=== PATIENT | female | born 1980 | race Two or more races ===

== ENCOUNTER 2023-09-18 09:31 | Emergency (ER) | payer OTHER ==
[~2023-09-18] VITALS: Ht 170.2 cm; Wt 63.6 kg
[2023-09-18 09:51] VITALS: BP 123/91; PULSE 90; RESP 22; O2SAT 98
== END 2023-09-18 10:13 | disposition left against medical advice (07) ==
LOC: EDBD 09:31 → ER 09:31
DX: F15.10 Other stimulant abuse, uncomplicated (principal); G89.29 Other chronic pain

== ENCOUNTER 2023-10-09 08:41 | Emergency (ER) | payer MEDICAID ==
[~2023-10-09] VITALS: Ht 170.2 cm; Wt 55.0 kg
[2023-10-09 08:50] VITALS: BP 101/71; TEMP 99.4
[2023-10-09 09:17] VITALS: PULSE 113; RESP 18; O2SAT 95
[2023-10-09] MEDS: KETOROLAC TROMETH 60MG/2ML VIAL IM ONE (09:29)
[2023-10-09] MEDS: diphenhdrAMINE HCL 50 MG/1 ML VL IM ONE (09:30)
== END 2023-10-09 09:28 | disposition home or self-care (01) ==
LOC: ER 08:41 → EDBD 08:41 → ER 09:28
DX: G89.29 Other chronic pain (principal); M54.50 Low back pain, unspecified; Z59.00 Homelessness unspecified; Z88.6 Allergy status to analgesic agent
CPT/HCPCS: 96372; 99284; J1200; J1885

== ENCOUNTER 2023-10-09 09:52 | Inpatient (IN) | payer MEDICAID ==
[~2023-10-09] VITALS: Ht 170.2 cm; Wt 82.1 kg
[2023-10-09 10:42] VITALS: PULSE 68; RESP 14; O2SAT 98
[2023-10-09 11:06] LABS: Hematocrit 38.2 % (36.0-46.0); Hemoglobin 13.1 g/dL (12.2-16.2); Mean Corpuscular Hemoglobin 28.8 pg (28.0-32.0); Mean Corpuscular Hgb Conc. 34.4 g/dL (32.0-36.0); Mean Corpuscular Volume 83.9 fL (80.0-100.0); Platelet Count (auto) 248 10^3/uL (140-450); Red Blood Cells 4.55 10^6/uL (4.0-5.20); Red Cell Distribution Width 14.1 % (11.8-14.3); White Blood Cell 5.8 10^3/uL (4.4-10.8)
[2023-10-09 11:10] LABS: Band Neutrophils % (manual) 0; Basophils % (manual) 0 (0.0-2.0); Eosinophils % (manual) 0 (0-7); Metamyelocytes % 0; Myelocytes % 0; Promyelocytes % 0
[2023-10-09 11:23] LABS: Alanine Aminotransferase 17 U/L (7-40); Albumin 3.7 g/dL (3.2-4.8); Alkaline Phosphatase 51 U/L (46-116); Anion Gap 2 (5-15); Aspartate Aminotransferase 25 U/L (13-40); BUN/Creatinine Ratio 9.1 (10.0-20.0); Bilirubin, Total 0.3 mg/dL (0.2-1.0); Blood Urea Nitrogen 7 mg/dL (9-23); Calcium 8.8 mg/dL (8.7-10.4); Carbon Dioxide 33 mmol/L (20-30); Chloride 100 mmol/L (98-107); Glucose 139 mg/dL (74-106); Potassium 3.1 mmol/L (3.5-5.1); Sodium 135 mmol/L (136-145); Total Protein 6.6 g/dL (5.7-8.2)
[2023-10-09 12:06] LABS: Blast Cells 3; Lymphocytes % (manual) 41 (10.0-50.0); Monocytes % (manual) 8 (0-12); Platelet Estimate Adequate; Reactive Lymphocytes 2
[2023-10-09 13:11] LABS: Blood Alcohol < 3.0 mg/dL (<10)
[2023-10-09 13:12] LABS: Creatine Kinase IFCC 138 U/L (34-145)
[2023-10-09 13:54] LABS: Salicylate 4.9 mg/dL (2.8-20.0)
[2023-10-09 14:02] LABS: Acetaminophen < 2.0 UG/ML (10.0-20.0)
[2023-10-09] MEDS: SODIUM CHLORIDE 0.9% 1,000 ML IV ONE ×2 (14:42→16:31)
[2023-10-09 15:48] LABS: Urine Bacteria FEW /hpf (None Seen); Urine Blood Negative /uL (Negative); Urine Clarity Turbid (Clear); Urine Color Yellow (Yellow); Urine Mucus MODERATE (None Seen); Urine Protein, UAD 2+ (Negative); Urine Specific Gravity 1.031 (1.001-1.035); Urine Urobilinogen 6 mg/dL (Negative); Urine WBC 297 /hpf (0 - 5)
[2023-10-09 15:56] LABS: Amphetamine Screen, Urine Pos (NEGATIVE); Barbiturate Scree,Urine Neg (NEGATIVE); Benzodiazephine Screen, Urine Neg (NEGATIVE); Cannabinoid Screen, Urine Pos (NEGATIVE); Cocaine Screen, Urine Neg (NEGATIVE); Opiate Scree,Urine Neg (NEGATIVE); Phencyclidine Screen, Urine Neg (NEGATIVE)
[2023-10-09] MEDS: ONDANSETRON HCL 4 MG/2 ML VIAL IV ONE (16:16)
[2023-10-09] MEDS: POTASSIUM CHL 20 Meq TABLET PO ONE (16:17)
[2023-10-09] MEDS: cefTRIAXone 1GM/50ML D5W 50 ML IV ONE (16:22)
[2023-10-09] MEDS: HYDROcodone-ACET 5/325MG TAB PO ONE (16:23)
[2023-10-09] MEDS: LORazepam 2MG/ML-1ML VIAL ONE ×2 (16:45→23:48)
[2023-10-09] MEDS: LORazepam 2MG/ML-1ML VIAL IV ONE ×2 (17:00→23:46)
[2023-10-10] VITALS (75 sets, daily range): BP systolic 92–156; BP diastolic 50–93; PULSE 59–145; RESP 18–20; TEMP 98.1–100.2; O2SAT 35–100
[2023-10-10] MEDS: SODIUM CHLORIDE 0.9% 1,000 ML IV ONE ×2 (00:09→02:10)
[2023-10-10] MEDS: LORazepam 2MG/ML-1ML VIAL IV ONE (00:09)
[2023-10-10] MEDS: ROCURONIUM 10MG/ML 10ML VIAL IV ONE ×2 (00:28→00:43)
[2023-10-10] MEDS: MIDAZOLAM HCL 5 MG/ML-1ML VIAL ONE (00:28)
[2023-10-10] MEDS: NOREPINEPHRINE 8 MG/250ML KIT 250 ML IV SCH (00:38)
[2023-10-10] MEDS: NOREPINEPHRINE 8 MG/250ML KIT 250 ML IV ONE (00:39)
[2023-10-10] MEDS: PROPOFOL 100 ML IV ONE (00:39)
[2023-10-10] MEDS: MIDAZOLAM HCL 5 MG/ML-1ML VIAL IV ONE (00:43)
[2023-10-10] MEDS: PROPOFOL 100 ML IV SCH (00:56)
[2023-10-10] MEDS: IOHEXOL 300 MG/ML 100ML BOTTLE IJ ONE (01:55)
[2023-10-10] MEDS ORDERED: MORPHINE SULFATE INJ 2 MG/ml SYRG IV PRN (02:00)
[2023-10-10] MEDS ORDERED: ONDANSETRON HCL 4 MG/2 ML VIAL IV PRN (02:00)
[2023-10-10] MEDS ORDERED: NITROGLYCERIN 0.4 MG SL TAB SL PRN (02:00)
[2023-10-10] MEDS ORDERED: ACETAMINOPHEN 325 MG TAB PO PRN (02:00)
[2023-10-10] MEDS ORDERED: ALBUTEROL SULF 2.5 MG/0.5ML(0.5%) NEB SOLN NEB PRN (02:00)
[2023-10-10 02:05] LABS: Base Excess -2.4 mmol/L (-2.0-3.0)
[2023-10-10 02:42] LABS: Alanine Aminotransferase 18 U/L (7-40); Albumin 3.3 g/dL (3.2-4.8); Alkaline Phosphatase 50 U/L (46-116); Anion Gap 7 (5-15); Aspartate Aminotransferase 44 U/L (13-40); BUN/Creatinine Ratio 9.8 (10.0-20.0); Bilirubin, Total 0.2 mg/dL (0.2-1.0); Blood Urea Nitrogen 8 mg/dL (9-23); Calcium 7.7 mg/dL (8.7-10.4); Carbon Dioxide 24 mmol/L (20-30); Chloride 109 mmol/L (98-107); Glucose 131 mg/dL (74-106); Potassium 4.3 mmol/L (3.5-5.1); Sodium 140 mmol/L (136-145); Total Protein 6.1 g/dL (5.7-8.2)
[2023-10-10 02:59] LABS: Hematocrit 37.1 % (36.0-46.0); Hemoglobin 12.3 g/dL (12.2-16.2); Mean Corpuscular Hemoglobin 28.3 pg (28.0-32.0); Mean Corpuscular Hgb Conc. 33.3 g/dL (32.0-36.0); Platelet Count (auto) 213 10^3/uL (140-450); Red Blood Cells 4.36 10^6/uL (4.0-5.20); Red Cell Distribution Width 14.5 % (11.8-14.3); White Blood Cell 9.9 10^3/uL (4.4-10.8)
[2023-10-10 03:10] LABS: Basophils % (manual) 0 (0.0-2.0); Blast Cells 0; Eosinophils % (manual) 0 (0-7); Metamyelocytes % 0; Myelocytes % 0; Promyelocytes % 0; Reactive Lymphocytes 0
[2023-10-10] MEDS: fentaNYL Drip 2500mCg/250mlNS 250 ML IV SCH (03:13)
[2023-10-10] MEDS: MIDAZOLAM DRIP 50 mg/50mL 50 ML IV SCH (03:14)
[2023-10-10] MEDS: SODIUM CHLORIDE 0.9% 1,000 ML IV SCH ×2 (03:33→07:15)
[2023-10-10 03:38] LABS: Band Neutrophils % (manual) 5; Lymphocytes % (manual) 51 (10.0-50.0); Monocytes % (manual) 6 (0-12); Platelet Estimate Adequate
[2023-10-10] MEDS: CLINDAMYCIN 600MG IV 50 ML IV SCH (06:12)
[2023-10-10 07:47] LABS: Base Excess -4.2 mmol/L (-2.0-3.0)
[2023-10-10] MEDS: cefTRIAXone 1GM/50ML D5W 50 ML IV SCH (09:29)
[2023-10-10] MEDS: ENOXAPARIN SOD 40 MG/0.4 ML SYRINGE SC SCH (09:31)
[2023-10-10] MEDS: PANTOPRAZOLE 40 MG/10 ML VIAL INJ IV ONE (11:31)
[2023-10-10] MEDS: AZITHROMYCIN 500MG/ 250ML 250 ML IV ONE (11:37)
[2023-10-10] MEDS: ENOXAPARIN SOD 40 MG/0.4 ML SYRINGE SC ONE (12:30)
[2023-10-10] MEDS: IPRATROPIUM BROM 0.5 MG/2.5ML INH SOL NEB SCH (12:37)
[2023-10-10] MEDS: ALBUTEROL SULF 2.5 MG/0.5ML(0.5%) NEB SOLN NEB SCH (12:37)
[2023-10-10] MEDS: HYDROCORTISONE SOD SUCC 100 MG/2ML INJ VIAL IV ONE (12:59)
[2023-10-10] MEDS: Jevity 1.2 Cal/Fiber 1 Liter GT SCH (13:00)
[2023-10-10 14:56] LABS: Hepatitis B Surface Antigen Negative (Negative)
[2023-10-10 15:16] LABS: Hepatitis A Ab IgM Negative
[2023-10-10 15:17] LABS: Hepatitis B Core IgM Negative; Hepatitis C Antibody Negative (Negative)
[2023-10-10] MEDS: HYDROCORTISONE SOD SUCC 100 MG/2ML INJ VIAL IV SCH (21:23)
[2023-10-11] VITALS (105 sets, daily range): BP systolic 85–128; BP diastolic 52–88; PULSE 58–134; RESP 9–22; TEMP 97.5–99.5; O2SAT 91–100
[2023-10-11 03:57] LABS: Hematocrit 33.8 % (36.0-46.0); Hemoglobin 11.3 g/dL (12.2-16.2); Mean Corpuscular Hemoglobin 28.4 pg (28.0-32.0); Mean Corpuscular Hgb Conc. 33.4 g/dL (32.0-36.0); Mean Corpuscular Volume 85.2 fL (80.0-100.0); Platelet Count (auto) 204 10^3/uL (140-450); Red Blood Cells 3.97 10^6/uL (4.0-5.20); Red Cell Distribution Width 14.7 % (11.8-14.3); White Blood Cell 7.3 10^3/uL (4.4-10.8)
[2023-10-11 04:03] LABS: Band Neutrophils % (manual) 0; Basophils % (manual) 0 (0.0-2.0); Blast Cells 0; Eosinophils % (manual) 0 (0-7); Metamyelocytes % 0; Myelocytes % 0; Promyelocytes % 0; Reactive Lymphocytes 0
[2023-10-11 04:20] LABS: Alanine Aminotransferase 19 U/L (7-40); Albumin 3.1 g/dL (3.2-4.8); Alkaline Phosphatase 46 U/L (46-116); Anion Gap 7 (5-15); Aspartate Aminotransferase 41 U/L (13-40); BUN/Creatinine Ratio 9.3 (10.0-20.0); Bilirubin, Total 0.3 mg/dL (0.2-1.0); Blood Urea Nitrogen 5 mg/dL (9-23); Calcium 8.2 mg/dL (8.7-10.4); Carbon Dioxide 26 mmol/L (20-30); Chloride 111 mmol/L (98-107); Glucose 127 mg/dL (74-106); Phosphorus 3.8 mg/dL (2.4-5.1); Potassium 4.2 mmol/L (3.5-5.1); Sodium 144 mmol/L (136-145); Total Protein 5.8 g/dL (5.7-8.2)
[2023-10-11 05:05] LABS: Lymphocytes % (manual) 48 (10.0-50.0); Monocytes % (manual) 11 (0-12); Platelet Estimate Adequate; Smudge Cells 2 /100 WBC
[2023-10-11 08:18] LABS: Base Excess -4.6 mmol/L (-2.0-3.0)
[2023-10-11] MEDS: ENOXAPARIN SOD 40 MG/0.4 ML SYRINGE SC SCH (09:53)
[2023-10-11] MEDS: PANTOPRAZOLE 40 MG/10 ML VIAL INJ IV SCH (09:53)
[2023-10-11] MEDS: MULTIPLE VITAMIN TAB PO SCH (09:54)
[2023-10-11] MEDS: FLORASTOR (S. BOULARDII) 250 MG CAP PO SCH (09:54)
[2023-10-11] MEDS: THIAMINE HCL 100 MG TAB PO SCH (09:54)
[2023-10-11 10:07] LABS: RPR Non Reactive (Non Reactive)
[2023-10-11] MEDS: AZITHROMYCIN 500MG/ 250ML 250 ML IV SCH (10:16)
[2023-10-11] MEDS: LEVALBUTEROL HCL 1.25 MG/3 ML NEB NEB SCH (12:22)
[2023-10-11] MEDS: LORazepam 2MG/ML-1ML VIAL IV ONE (15:53)
[2023-10-11] MEDS: GADOTERATE MEG 7.5 MMOL/15ml INJ (0.5MMOL/ml) IV ONE (17:20)
[2023-10-11 22:06] LABS: Chlamydia Trachomatis, NAA Negative (Negative)
[2023-10-12] VITALS (104 sets, daily range): BP systolic 99–141; BP diastolic 48–93; PULSE 64–111; RESP 11–24; TEMP 98.8–99.7; O2SAT 95–100
[2023-10-12 04:19] LABS: Basophils # (auto) 0 10 ^3/uL (0-0.2); Basophils % (auto) 0.3 % (0.0-2.0); Eosinophils # (auto) 0 10 ^3/uL (0-0.8); Eosinophils % (auto) 0.1 % (0.0-7.0); Hematocrit 31.4 % (36.0-46.0); Hemoglobin 10.6 g/dL (12.2-16.2); Lymphocytes # (auto) 3.1 10 ^3/uL (0.4-5.4); Lymphocytes % (auto) 48.7 % (10.0-50.0); Mean Corpuscular Hemoglobin 28.6 pg (28.0-32.0); Mean Corpuscular Hgb Conc. 33.9 g/dL (32.0-36.0); Mean Corpuscular Volume 84.4 fL (80.0-100.0); Monocytes # (auto) 0.6 10 ^3/uL (0-1.3); Monocytes % (auto) 8.8 % (0.0-12.0); Neutrophils # (auto) 2.7 10 ^3/uL (1.6-8.6); Neutrophils % (auto) 42.1 % (37.0-80.0); Nucleated Red Blood Cells % 0.6 %; Platelet Count (auto) 208 10^3/uL (140-450); Red Blood Cells 3.72 10^6/uL (4.0-5.20); Red Cell Distribution Width 14.9 % (11.8-14.3); White Blood Cell 6.3 10^3/uL (4.4-10.8)
[2023-10-12 04:29] LABS: Alanine Aminotransferase 18 U/L (7-40); Alkaline Phosphatase 44 U/L (46-116); Anion Gap 4 (5-15); BUN/Creatinine Ratio 14.3 (10.0-20.0); Blood Urea Nitrogen 9 mg/dL (9-23); Calcium 8.6 mg/dL (8.7-10.4); Carbon Dioxide 28 mmol/L (20-30); Chloride 111 mmol/L (98-107); Glucose 159 mg/dL (74-106); Magnesium 1.9 mg/dL (1.6-2.6); Potassium 4.2 mmol/L (3.5-5.1); Sodium 143 mmol/L (136-145)
[2023-10-12 04:30] LABS: Aspartate Aminotransferase 37 U/L (13-40); Bilirubin, Total 0.2 mg/dL (0.2-1.0); Phosphorus 3.3 mg/dL (2.4-5.1); Total Protein 5.7 g/dL (5.7-8.2)
[2023-10-12 07:07] LABS: Neisseria gonorrhoeae, NAA Positive (Negative)
[2023-10-12 08:11] LABS: Base Excess 0.4 mmol/L (-2.0-3.0)
[2023-10-12] MEDS: levETIRAcetam 1000 mg/100ml 100 ML IV ONE (13:47)
[2023-10-12] MEDS: levETIRAcetam 1000 mg/100ml 100 ML IV SCH (22:25)
[2023-10-13] VITALS (108 sets, daily range): BP systolic 107–138; BP diastolic 74–92; PULSE 65–126; RESP 11–30; TEMP 98.2–99.7; O2SAT 96–100
[2023-10-13 04:02] LABS: Basophils # (auto) 0 10 ^3/uL (0-0.2); Basophils % (auto) 0.4 % (0.0-2.0); Eosinophils # (auto) 0 10 ^3/uL (0-0.8); Hematocrit 31.5 % (36.0-46.0); Hemoglobin 10.6 g/dL (12.2-16.2); Lymphocytes # (auto) 2.4 10 ^3/uL (0.4-5.4); Lymphocytes % (auto) 42.8 % (10.0-50.0); Mean Corpuscular Hemoglobin 28.7 pg (28.0-32.0); Mean Corpuscular Hgb Conc. 33.6 g/dL (32.0-36.0); Mean Corpuscular Volume 85.4 fL (80.0-100.0); Monocytes # (auto) 0.4 10 ^3/uL (0-1.3); Monocytes % (auto) 7.3 % (0.0-12.0); Neutrophils # (auto) 2.8 10 ^3/uL (1.6-8.6); Neutrophils % (auto) 49.5 % (37.0-80.0); Nucleated Red Blood Cells % 0.5 %; Platelet Count (auto) 207 10^3/uL (140-450); Red Blood Cells 3.69 10^6/uL (4.0-5.20); Red Cell Distribution Width 15.4 % (11.8-14.3); White Blood Cell 5.6 10^3/uL (4.4-10.8)
[2023-10-13 04:33] LABS: Alanine Aminotransferase 25 U/L (7-40); Albumin 3.2 g/dL (3.2-4.8); Alkaline Phosphatase 41 U/L (46-116); Anion Gap 5 (5-15); Aspartate Aminotransferase 44 U/L (13-40); BUN/Creatinine Ratio 13.1 (10.0-20.0); Blood Urea Nitrogen 8 mg/dL (9-23); Calcium 8.4 mg/dL (8.7-10.4); Carbon Dioxide 27 mmol/L (20-30); Chloride 113 mmol/L (98-107); Glucose 131 mg/dL (74-106); Magnesium 1.9 mg/dL (1.6-2.6); Phosphorus 3.3 mg/dL (2.4-5.1); Potassium 4.1 mmol/L (3.5-5.1); Sodium 145 mmol/L (136-145)
[2023-10-13 04:34] LABS: Bilirubin, Total 0.2 mg/dL (0.2-1.0); Total Protein 5.9 g/dL (5.7-8.2)
[2023-10-13 07:26] LABS: Base Excess 1.8 mmol/L (-2.0-3.0)
[2023-10-14] VITALS (108 sets, daily range): BP systolic 102–163; BP diastolic 68–90; PULSE 65–122; RESP 16–24; TEMP 98.4–99.5; O2SAT 95–100
[2023-10-14 04:13] LABS: Alanine Aminotransferase 47 U/L (7-40); Alkaline Phosphatase 42 U/L (46-116); Anion Gap 4 (5-15); Aspartate Aminotransferase 70 U/L (13-40); BUN/Creatinine Ratio 18.2 (10.0-20.0); Blood Urea Nitrogen 10 mg/dL (9-23); Calcium 8.2 mg/dL (8.7-10.4); Carbon Dioxide 30 mmol/L (20-30); Chloride 111 mmol/L (98-107); Glucose 131 mg/dL (74-106); Magnesium 1.8 mg/dL (1.6-2.6); Potassium 3.8 mmol/L (3.5-5.1); Sodium 145 mmol/L (136-145)
[2023-10-14 04:14] LABS: Bilirubin, Total 0.3 mg/dL (0.2-1.0); Phosphorus 3.4 mg/dL (2.4-5.1); Total Protein 5.7 g/dL (5.7-8.2)
[2023-10-14 04:23] LABS: Hemoglobin 10.6 g/dL (12.2-16.2); Mean Corpuscular Hemoglobin 29.1 pg (28.0-32.0); Mean Corpuscular Hgb Conc. 34.1 g/dL (32.0-36.0); Mean Corpuscular Volume 85.3 fL (80.0-100.0); Platelet Count (auto) 221 10^3/uL (140-450); Red Blood Cells 3.63 10^6/uL (4.0-5.20); Red Cell Distribution Width 14.9 % (11.8-14.3); White Blood Cell 5.5 10^3/uL (4.4-10.8)
[2023-10-14 04:38] LABS: Basophils % (manual) 0 (0.0-2.0); Blast Cells 0; Eosinophils % (manual) 0 (0-7); Myelocytes % 0; Promyelocytes % 0; Reactive Lymphocytes 0
[2023-10-14 05:06] LABS: Band Neutrophils % (manual) 3; Lymphocytes % (manual) 37 (10.0-50.0); Metamyelocytes % 1; Monocytes % (manual) 9 (0-12); Platelet Estimate Adequate
[2023-10-14 06:52] LABS: Base Excess 3.7 mmol/L (-2.0-3.0)
[2023-10-15] VITALS (106 sets, daily range): BP systolic 103–146; BP diastolic 50–97; PULSE 51–131; RESP 12–23; TEMP 96.3–99.9; O2SAT 95–100
[2023-10-15 04:29] LABS: Basophils # (auto) 0 10 ^3/uL (0-0.2); Basophils % (auto) 0.1 % (0.0-2.0); Eosinophils # (auto) 0 10 ^3/uL (0-0.8); Eosinophils % (auto) 0.1 % (0.0-7.0); Hematocrit 30.3 % (36.0-46.0); Hemoglobin 10.3 g/dL (12.2-16.2); Lymphocytes # (auto) 3.1 10 ^3/uL (0.4-5.4); Mean Corpuscular Hgb Conc. 33.9 g/dL (32.0-36.0); Mean Corpuscular Volume 85.5 fL (80.0-100.0); Monocytes # (auto) 0.6 10 ^3/uL (0-1.3); Monocytes % (auto) 9.4 % (0.0-12.0); Neutrophils # (auto) 2.8 10 ^3/uL (1.6-8.6); Neutrophils % (auto) 43.4 % (37.0-80.0); Nucleated Red Blood Cells % 0.6 %; Platelet Count (auto) 238 10^3/uL (140-450); Red Blood Cells 3.55 10^6/uL (4.0-5.20); White Blood Cell 6.5 10^3/uL (4.4-10.8)
[2023-10-15 04:50] LABS: Alanine Aminotransferase 51 U/L (7-40); Alkaline Phosphatase 42 U/L (46-116); Anion Gap 3 (5-15); Calcium 8.3 mg/dL (8.7-10.4); Carbon Dioxide 29 mmol/L (20-30); Chloride 111 mmol/L (98-107); Sodium 143 mmol/L (136-145)
[2023-10-15 04:51] LABS: BUN/Creatinine Ratio 16.4 (10.0-20.0); Blood Urea Nitrogen 9 mg/dL (9-23); Glucose 122 mg/dL (74-106); Magnesium 1.9 mg/dL (1.6-2.6)
[2023-10-15 04:53] LABS: Albumin 2.9 g/dL (3.2-4.8); Aspartate Aminotransferase 50 U/L (13-40); Bilirubin, Total 0.2 mg/dL (0.2-1.0); Phosphorus 3.8 mg/dL (2.4-5.1); Total Protein 5.4 g/dL (5.7-8.2)
[2023-10-15 07:25] LABS: Base Excess 4.8 mmol/L (-2.0-3.0)
[2023-10-16] VITALS (107 sets, daily range): BP systolic 101–147; BP diastolic 62–110; PULSE 57–122; RESP 13–32; TEMP 96.8–100.6; O2SAT 91–100
[2023-10-16 04:13] LABS: Basophils # (auto) 0 10 ^3/uL (0-0.2); Basophils % (auto) 0.3 % (0.0-2.0); Eosinophils # (auto) 0 10 ^3/uL (0-0.8); Eosinophils % (auto) 0.1 % (0.0-7.0); Hematocrit 30.4 % (36.0-46.0); Hemoglobin 10.3 g/dL (12.2-16.2); Lymphocytes # (auto) 2.9 10 ^3/uL (0.4-5.4); Lymphocytes % (auto) 46.2 % (10.0-50.0); Mean Corpuscular Volume 85.1 fL (80.0-100.0); Monocytes # (auto) 0.6 10 ^3/uL (0-1.3); Monocytes % (auto) 10.2 % (0.0-12.0); Neutrophils # (auto) 2.7 10 ^3/uL (1.6-8.6); Neutrophils % (auto) 43.2 % (37.0-80.0); Nucleated Red Blood Cells % 0.1 %; Platelet Count (auto) 230 10^3/uL (140-450); Red Blood Cells 3.57 10^6/uL (4.0-5.20); Red Cell Distribution Width 14.7 % (11.8-14.3); White Blood Cell 6.3 10^3/uL (4.4-10.8)
[2023-10-16 04:39] LABS: Alanine Aminotransferase 50 U/L (7-40); Albumin 2.9 g/dL (3.2-4.8); Alkaline Phosphatase 45 U/L (46-116); Anion Gap 6 (5-15); Aspartate Aminotransferase 41 U/L (13-40); BUN/Creatinine Ratio 22.6 (10.0-20.0); Blood Urea Nitrogen 12 mg/dL (9-23); Calcium 8.2 mg/dL (8.7-10.4); Carbon Dioxide 27 mmol/L (20-30); Chloride 109 mmol/L (98-107); Glucose 122 mg/dL (74-106); Magnesium 1.8 mg/dL (1.6-2.6); Potassium 3.9 mmol/L (3.5-5.1); Sodium 142 mmol/L (136-145)
[2023-10-16 04:40] LABS: Bilirubin, Total 0.2 mg/dL (0.2-1.0); Phosphorus 3.8 mg/dL (2.4-5.1); Total Protein 5.3 g/dL (5.7-8.2)
[2023-10-16 07:47] LABS: Base Excess 2.3 mmol/L (-2.0-3.0)
[2023-10-16] MEDS ORDERED: METOCLOPRAMIDE HCL 5MG/ml INJ 2ml VIAL IV PRN (09:45)
[2023-10-16] MEDS: METOCLOPRAMIDE HCL 5MG/ml INJ 2ml VIAL IV SCH (10:33)
[2023-10-16] MEDS: LORazepam 2MG/ML-1ML VIAL ONE (12:00)
[2023-10-16] MEDS ORDERED: LORazepam 2MG/ML-1ML VIAL IV PRN (12:15)
[2023-10-16 12:24] LABS: Base Excess -11.9 mmol/L (-2.0-3.0)
[2023-10-16] MEDS: LORazepam 2MG/ML-1ML VIAL IV PRN (12:35)
[2023-10-16] MEDS: SODIUM BICARB 8.4% 50Meq/50ml SYR Vial IV ONE (12:48)
[2023-10-16 13:56] LABS: Base Excess 5.9 mmol/L (-2.0-3.0)
[2023-10-17] VITALS (110 sets, daily range): BP systolic 109–141; BP diastolic 67–100; PULSE 66–118; RESP 14–23; TEMP 98.6–99.5; O2SAT 94–100
[2023-10-17 04:27] LABS: Hematocrit 29.3 % (36.0-46.0); Hemoglobin 9.8 g/dL (12.2-16.2); Mean Corpuscular Hemoglobin 28.2 pg (28.0-32.0); Mean Corpuscular Hgb Conc. 33.5 g/dL (32.0-36.0); Mean Corpuscular Volume 84.4 fL (80.0-100.0); Platelet Count (auto) 233 10^3/uL (140-450); Red Blood Cells 3.47 10^6/uL (4.0-5.20); Red Cell Distribution Width 14.6 % (11.8-14.3); White Blood Cell 5.6 10^3/uL (4.4-10.8)
[2023-10-17 04:30] LABS: Alanine Aminotransferase 63 U/L (7-40); Alkaline Phosphatase 43 U/L (46-116); Anion Gap 5 (5-15); BUN/Creatinine Ratio 24.5 (10.0-20.0); Basophils % (manual) 0 (0.0-2.0); Blast Cells 0; Blood Urea Nitrogen 12 mg/dL (9-23); Calcium 7.8 mg/dL (8.7-10.4); Carbon Dioxide 29 mmol/L (20-30); Chloride 108 mmol/L (98-107); Eosinophils % (manual) 0 (0-7); Glucose 98 mg/dL (74-106); Magnesium 1.7 mg/dL (1.6-2.6); Metamyelocytes % 0; Myelocytes % 0; Potassium 3.2 mmol/L (3.5-5.1); Promyelocytes % 0; Sodium 142 mmol/L (136-145)
[2023-10-17 04:31] LABS: Albumin 2.7 g/dL (3.2-4.8); Aspartate Aminotransferase 60 U/L (13-40); Bilirubin, Total 0.3 mg/dL (0.2-1.0); Phosphorus 3.3 mg/dL (2.4-5.1); Total Protein 4.9 g/dL (5.7-8.2)
[2023-10-17] MEDS: PROPOFOL 100 ML IV SCH ×2 (05:23→08:23)
[2023-10-17 06:10] LABS: Band Neutrophils % (manual) 3; Lymphocytes % (manual) 45 (10.0-50.0); Monocytes % (manual) 5 (0-12); Reactive Lymphocytes 1
[2023-10-17 06:11] LABS: Platelet Estimate Adequate
[2023-10-17] MEDS ORDERED: POTASSIUM CHL 20MEQ/100ML 100 ML IV SCH (07:45)
[2023-10-17 08:08] LABS: Base Excess 5.6 mmol/L (-2.0-3.0)
[2023-10-17] MEDS: MAGNESIUM SULFATE 1GM/100ML 100 ML IV ONE (08:30)
[2023-10-17] MEDS: POTASSIUM CHL 20MEQ/100ML 100 ML IV SCH (08:31)
[2023-10-18] VITALS (79 sets, daily range): BP systolic 106–149; BP diastolic 71–101; PULSE 79–118; RESP 13–22; TEMP 99.1–100.4; O2SAT 95–100
[2023-10-18 04:22] LABS: Basophils # (auto) 0.1 10 ^3/uL (0-0.2); Basophils % (auto) 1.1 % (0.0-2.0); Eosinophils # (auto) 0 10 ^3/uL (0-0.8); Eosinophils % (auto) 0.3 % (0.0-7.0); Hematocrit 31.2 % (36.0-46.0); Hemoglobin 10.5 g/dL (12.2-16.2); Lymphocytes # (auto) 3.5 10 ^3/uL (0.4-5.4); Mean Corpuscular Hemoglobin 28.5 pg (28.0-32.0); Mean Corpuscular Hgb Conc. 33.5 g/dL (32.0-36.0); Mean Corpuscular Volume 84.9 fL (80.0-100.0); Monocytes # (auto) 0.6 10 ^3/uL (0-1.3); Monocytes % (auto) 10.3 % (0.0-12.0); Neutrophils % (auto) 31.8 % (37.0-80.0); Nucleated Red Blood Cells % 0.4 %; Platelet Count (auto) 236 10^3/uL (140-450); Red Blood Cells 3.68 10^6/uL (4.0-5.20); Red Cell Distribution Width 14.9 % (11.8-14.3); White Blood Cell 6.2 10^3/uL (4.4-10.8)
[2023-10-18 04:33] LABS: Alanine Aminotransferase 100 U/L (7-40); Albumin 2.8 g/dL (3.2-4.8); Alkaline Phosphatase 44 U/L (46-116); Anion Gap 3 (5-15); Aspartate Aminotransferase 107 U/L (13-40); BUN/Creatinine Ratio 19.6 (10.0-20.0); Blood Urea Nitrogen 10 mg/dL (9-23); Calcium 8.1 mg/dL (8.7-10.4); Carbon Dioxide 31 mmol/L (20-30); Chloride 107 mmol/L (98-107); Glucose 84 mg/dL (74-106); Magnesium 1.9 mg/dL (1.6-2.6); Phosphorus 3.1 mg/dL (2.4-5.1); Potassium 3.2 mmol/L (3.5-5.1); Sodium 141 mmol/L (136-145)
[2023-10-18 04:34] LABS: Bilirubin, Total 0.2 mg/dL (0.2-1.0)
[2023-10-18 04:35] LABS: Lymphocytes % (auto) 56.5 % (10.0-50.0)
[2023-10-18] MEDS: POTASSIUM CHL 20MEQ/100ML 100 ML IV SCH (08:02)
[2023-10-18] MEDS: MAGNESIUM SULFATE 1GM/100ML 100 ML IV ONE (08:03)
[2023-10-18 09:22] LABS: Triglycerides 277 mg/dL (< 150)
[2023-10-18 09:23] LABS: LDL Cholesterol 97 mg/dL (< 100)
[2023-10-18 09:24] LABS: Cholesterol 163 mg/dL (< 200); HDL Cholesterol 30 mg/dL (40-59)
[2023-10-18] MEDS ORDERED: CEFEPIME 1GM/ 50ML 50 ML IV ONE (09:45)
[2023-10-18] MEDS ORDERED: VANCOMYCIN PER PHARMACY 0 MG IV SCH (09:45)
[2023-10-18] MEDS: CEFEPIME 1GM/ 50ML 50 ML IV SCH (10:21)
[2023-10-18 11:49] LABS: INR 0.98 (0.9-1.15); Partial Thromboplastin Time 24.1 SEC (24.5-34.5); Prothrombin Time 10.4 sec (9.3-11.8)
[2023-10-18] MEDS: VANCOMYCIN 1GM/200ML 200 ML IV ONE ×2 (11:56→12:02)
[2023-10-18] MEDS ORDERED: LIDOCAINE 1% (LOCAL ANESTH.) PF 5ml SDV ID ONE (14:00)
[2023-10-18] MEDS ORDERED: VANCOMYCIN 1GM/200ML 200 ML IV SCH (20:00)
[2023-10-18] MEDS ORDERED: SODIUM CHLOR 0.9% PF (SALINE LOCK) 10ML VIAL/SYR IV SCH (22:00)
[2023-10-30 08:53] LABS: Cocaine Blood SEE SCANNED RESULTS; Tetrahydrocannabinol SEE SCANNED RESULTS
[2023-10-30 08:55] LABS: THC Blood SEE SCANNED RESULTS
== END 2023-10-18 18:34 | disposition short-term general hospital (02) | DRG 720 ==
LOC: ER 09:52 → TELE 10-10 01:49 → ICU WEST 10-10 08:15
PROVIDERS: ADMIT Internal Medicine Pulmonary Disease; ATTEND Internal Medicine Pulmonary Disease
PROC: 0BH17EZ Insertion of Endotracheal Airway into Trachea, Via Natural or Artificial Opening (ICD-10-PCS; principal; 2023-10-10)
PROC: 5A1955Z Respiratory Ventilation, Greater than 96 Consecutive Hours (ICD-10-PCS; 2023-10-10)
PROC: 02HV33Z Insertion of Infusion Device into Superior Vena Cava, Percutaneous Approach (ICD-10-PCS; 2023-10-18)
PROC: B548ZZA Ultrasonography of Superior Vena Cava, Guidance (ICD-10-PCS; 2023-10-18)
DX: A41.9 Sepsis, unspecified organism (principal); J96.01 Acute respiratory failure with hypoxia; J69.0 Pneumonitis due to inhalation of food and vomit; I21.A1 Myocardial infarction type 2; G92.8 Other toxic encephalopathy; R45.851 Suicidal ideations; R56.9 Unspecified convulsions; F19.10 Other psychoactive substance abuse, uncomplicated; J44.89 Other specified chronic obstructive pulmonary disease; F15.90 Other stimulant use, unspecified, uncomplicated; F20.9 Schizophrenia, unspecified; A54.9 Gonococcal infection, unspecified; N39.0 Urinary tract infection, site not specified; L03.818 Cellulitis of other sites; Z59.00 Homelessness unspecified; Z88.8 Allergy status to other drugs, medicaments and biological substances; Z79.899 Other long term (current) drug therapy
CPT/HCPCS: 36415; 36569; 36600; 70450; 70553; 71045; 71260; 72125; 74018; 74177; 80053; 80061; 80074; 80307; 80320; 80329; 81001; 81025; 82550; 82805; 83605; 83735; 83880; 84100; 84484; 84702; 85007; 85025; 85027; 85610; 85730; 86592; 86703; 87040; 87070; 87081; 87086; 87205; 87389; 93306; 93970; 94002; 94003; 94640; 95819; 99291; G0378; J2250; J2405; J2470; J2704; J3480; J3490; J7060

== ENCOUNTER 2023-10-23 15:00 | Inpatient (IN) | payer MEDICAID ==
[2023-10-23] VITALS (12 sets, daily range): BP systolic 96–115; BP diastolic 26–79; PULSE 91–121; RESP 18–31; TEMP 98.8–104.5; O2SAT 96–100
[~2023-10-23] VITALS: Ht 162.6 cm; Wt 61.8 kg
[2023-10-23] MEDS ORDERED: MORPHINE SULFATE INJ 2 MG/ml SYRG IV PRN (17:15)
[2023-10-23] MEDS ORDERED: NITROGLYCERIN 0.4 MG SL TAB SL PRN (17:15)
[2023-10-23] MEDS ORDERED: VANCOMYCIN PER PHARMACY 0 MG IV SCH (17:30)
[2023-10-23] MEDS ORDERED: PROPOFOL 100 ML IV SCH (17:30)
[2023-10-23] MEDS: LORazepam 2MG/ML-1ML VIAL ONE (21:52)
[2023-10-23] MEDS: ACETAMINOPHEN 650 MG RECT SUPP PR ONE (21:58)
[2023-10-23] MEDS: SODIUM CHLORIDE 0.9% 1,000 ML IV ONE (22:00)
[2023-10-23] MEDS: ACETAMINOPHEN 650 MG RECT SUPP PR PRN (22:00)
[2023-10-23] MEDS: NOREPINEPHRINE 8 MG/250ML KIT 250 ML IV SCH (22:18)
[2023-10-23] MEDS: levETIRAcetam 1000 mg/100ml 100 ML IV SCH (22:34)
[2023-10-23 22:45] LABS: Basophils # (auto) 0.1 10 ^3/uL (0-0.2); Basophils % (auto) 0.8 % (0.0-2.0); Eosinophils # (auto) 0 10 ^3/uL (0-0.8); Hematocrit 26.9 % (36.0-46.0); Hemoglobin 8.8 g/dL (12.2-16.2); Lymphocytes % (auto) 31.8 % (10.0-50.0); Mean Corpuscular Hemoglobin 28.6 pg (28.0-32.0); Mean Corpuscular Hgb Conc. 32.6 g/dL (32.0-36.0); Mean Corpuscular Volume 87.9 fL (80.0-100.0); Monocytes % (auto) 7.9 % (0.0-12.0); Neutrophils # (auto) 7.4 10 ^3/uL (1.6-8.6); Neutrophils % (auto) 59.5 % (37.0-80.0); Nucleated Red Blood Cells % 0.1 %; Platelet Count (auto) 134 10^3/uL (140-450); Red Blood Cells 3.07 10^6/uL (4.0-5.20); Red Cell Distribution Width 16.4 % (11.8-14.3); White Blood Cell 12.5 10^3/uL (4.4-10.8)
[2023-10-23 22:47] LABS: Urine Bacteria None Seen /hpf (None Seen)
[2023-10-23] MEDS: SODIUM CHLORIDE 0.9% 1,000 ML IV SCH (23:00)
[2023-10-23 23:02] LABS: Alanine Aminotransferase 174 U/L (7-40); Albumin 2.8 g/dL (3.2-4.8); Alkaline Phosphatase 58 U/L (46-116); Anion Gap 6 (5-15); Aspartate Aminotransferase 100 U/L (13-40); BUN/Creatinine Ratio 25.6 (10.0-20.0); Bilirubin, Total 0.4 mg/dL (0.2-1.0); Blood Urea Nitrogen 20 mg/dL (9-23); Calcium 7.4 mg/dL (8.7-10.4); Carbon Dioxide 26 mmol/L (20-30); Chloride 112 mmol/L (98-107); Glucose 99 mg/dL (74-106); Potassium 4.1 mmol/L (3.5-5.1); Sodium 144 mmol/L (136-145); Total Protein 5.1 g/dL (5.7-8.2)
[2023-10-23 23:03] LABS: Urine Amorphous Crystal FEW /hpf (None Seen); Urine Blood 2+ /uL (Negative); Urine Clarity Clear (Clear); Urine Color Yellow (Yellow); Urine Protein, UAD 1+ (Negative); Urine Specific Gravity 1.017 (1.001-1.035); Urine Urobilinogen Normal (Negative); Urine WBC <1 /hpf (0 - 5)
[2023-10-23] MEDS: CEFEPIME 1GM/ 50ML 50 ML IV SCH (23:03)
[2023-10-23] MEDS: LORazepam 2MG/ML-1ML VIAL IV PRN (23:23)
[2023-10-23] MEDS: MIDAZOLAM DRIP 50 mg/50mL 50 ML IV SCH (23:24)
[2023-10-24] VITALS (107 sets, daily range): BP systolic 69–150; BP diastolic 51–113; PULSE 72–133; RESP 15–37; TEMP 96.6–100.8; O2SAT 89–100
[2023-10-24] MEDS: VANCOMYCIN 1GM/250ML 200 ML IV ONE (00:22)
[2023-10-24 06:58] LABS: Base Excess -3.2 mmol/L (-2.0-3.0)
[2023-10-24 07:27] LABS: Basophils # (auto) 0 10 ^3/uL (0-0.2); Basophils % (auto) 0.4 % (0.0-2.0); Eosinophils # (auto) 0 10 ^3/uL (0-0.8); Hematocrit 28.1 % (36.0-46.0); Hemoglobin 9.1 g/dL (12.2-16.2); Lymphocytes # (auto) 3.5 10 ^3/uL (0.4-5.4); Lymphocytes % (auto) 30.2 % (10.0-50.0); Mean Corpuscular Hemoglobin 28.3 pg (28.0-32.0); Mean Corpuscular Hgb Conc. 32.4 g/dL (32.0-36.0); Mean Corpuscular Volume 87.5 fL (80.0-100.0); Monocytes % (auto) 8.8 % (0.0-12.0); Neutrophils % (auto) 60.6 % (37.0-80.0); Nucleated Red Blood Cells % 0.2 %; Platelet Count (auto) 143 10^3/uL (140-450); Red Blood Cells 3.21 10^6/uL (4.0-5.20); Red Cell Distribution Width 16.2 % (11.8-14.3); White Blood Cell 11.5 10^3/uL (4.4-10.8)
[2023-10-24 07:36] LABS: Alanine Aminotransferase 113 U/L (7-40); Albumin 2.2 g/dL (3.2-4.8); Alkaline Phosphatase 41 U/L (46-116); Anion Gap 8 (5-15); Aspartate Aminotransferase 52 U/L (13-40); BUN/Creatinine Ratio 45.7 (10.0-20.0); Blood Urea Nitrogen 16 mg/dL (9-23); Carbon Dioxide 20 mmol/L (20-30); Chloride 120 mmol/L (98-107); Cholesterol 87 mg/dL (< 200); Glucose 95 mg/dL (74-106); HDL Cholesterol 11 mg/dL (40-59); LDL Cholesterol 45 mg/dL (< 100); Magnesium 1.5 mg/dL (1.6-2.6); Sodium 148 mmol/L (136-145); Total Protein 3.8 g/dL (5.7-8.2); Triglycerides 163 mg/dL (< 150)
[2023-10-24 07:37] LABS: Bilirubin, Total 0.3 mg/dL (0.2-1.0); Phosphorus 1.5 mg/dL (2.4-5.1)
[2023-10-24 07:37] LABS: Amphetamine Screen, Urine Neg (NEGATIVE)
[2023-10-24 07:38] LABS: Barbiturate Scree,Urine Neg (NEGATIVE); Benzodiazephine Screen, Urine Pos (NEGATIVE); Cannabinoid Screen, Urine Neg (NEGATIVE); Cocaine Screen, Urine Neg (NEGATIVE); Opiate Scree,Urine Neg (NEGATIVE); Phencyclidine Screen, Urine Neg (NEGATIVE)
[2023-10-24 07:39] LABS: Calcium 5.9 mg/dL (8.7-10.4)
[2023-10-24 07:48] LABS: Lipase 19 U/L (12-53)
[2023-10-24] MEDS ORDERED: CALCIUM GLUC 1,000mg/50ml-NS 50 ML IV SCH (08:45)
[2023-10-24 09:00] LABS: INR 1.21 (0.9-1.15); Partial Thromboplastin Time 28.4 SEC (24.5-34.5); Prothrombin Time 12.6 sec (9.3-11.8)
[2023-10-24] MEDS: CALCIUM GLUC 1,000mg/50ml-NS 50 ML IV SCH (09:00)
[2023-10-24] MEDS: POTASSIUM CHL 20MEQ/100ML 100 ML IV SCH (09:17)
[2023-10-24] MEDS: PANTOPRAZOLE 40 MG/10 ML VIAL INJ IV SCH (09:22)
[2023-10-24] MEDS: VANCOMYCIN 1GM/250ML 200 ML IV SCH (11:09)
[2023-10-24 12:12] LABS: COVID19 ANTIGEN SOFIA FIA NEGATIVE (NEGATIVE); Rapid Influenza A Negative (Negative); Rapid Influenza B Negative (Negative)
[2023-10-24] MEDS: ENOXAPARIN SOD 40 MG/0.4 ML SYRINGE SC ONE (14:34)
[2023-10-24] MEDS: ETOMIDATE (2MG/ML) 20ML VIAL IV ONE ×2 (15:58)
[2023-10-24] MEDS: ROCURONIUM 10MG/ML 10ML VIAL IV ONE ×2 (15:58→16:00)
[2023-10-24] MEDS: EPINEPHrine HCL 0.5 ML NEB ONE (15:59)
[2023-10-24] MEDS: fentaNYL Drip 2500mCg/250mlNS 250 ML IV SCH (16:48)
[2023-10-24 17:38] LABS: Alanine Aminotransferase 131 U/L (7-40); Alkaline Phosphatase 51 U/L (46-116); Anion Gap 5 (5-15); Aspartate Aminotransferase 53 U/L (13-40); BUN/Creatinine Ratio 30.2 (10.0-20.0); Blood Urea Nitrogen 16 mg/dL (9-23); Calcium 8.2 mg/dL (8.7-10.4); Carbon Dioxide 27 mmol/L (20-30); Chloride 112 mmol/L (98-107); Glucose 129 mg/dL (74-106); Potassium 3.7 mmol/L (3.5-5.1); Sodium 144 mmol/L (136-145)
[2023-10-24 17:39] LABS: Albumin 2.9 g/dL (3.2-4.8); Bilirubin, Total 0.5 mg/dL (0.2-1.0); Total Protein 5.2 g/dL (5.7-8.2)
[2023-10-24] MEDS: levETIRAcetam 500 mg/100ml 100 ML IV SCH (21:31)
[2023-10-24] MEDS ORDERED: BACTRIM 5MG/KG Q8HR PER RX 0 ML IV SCH (22:30)
[2023-10-24] MEDS: D5W 5% IV ONE (22:45)
[2023-10-24] MEDS: SULFAMETH TRIMETH IV ONE (22:45)
[2023-10-25] VITALS (113 sets, daily range): BP systolic 93–197; BP diastolic 54–189; PULSE 99–130; RESP 17–38; TEMP 98.4–100.2; O2SAT 90–100
[2023-10-25] MEDS: D5W 5% IV ONE ×2 (01:30→07:44)
[2023-10-25] MEDS: SULFAMETH TRIMETH IV ONE ×2 (01:30→07:44)
[2023-10-25 03:45] LABS: Alanine Aminotransferase 106 U/L (7-40); Albumin 2.8 g/dL (3.2-4.8); Alkaline Phosphatase 48 U/L (46-116); Anion Gap 6 (5-15); Aspartate Aminotransferase 40 U/L (13-40); BUN/Creatinine Ratio 28.3 (10.0-20.0); Blood Urea Nitrogen 13 mg/dL (9-23); Calcium 8.3 mg/dL (8.7-10.4); Carbon Dioxide 26 mmol/L (20-30); Chloride 111 mmol/L (98-107); Glucose 76 mg/dL (74-106); Magnesium 1.8 mg/dL (1.6-2.6); Phosphorus 1.7 mg/dL (2.4-5.1); Potassium 3.5 mmol/L (3.5-5.1); Sodium 143 mmol/L (136-145)
[2023-10-25 03:46] LABS: Bilirubin, Total 0.4 mg/dL (0.2-1.0); Total Protein 5.3 g/dL (5.7-8.2)
[2023-10-25 03:52] LABS: Hematocrit 24.1 % (36.0-46.0); Mean Corpuscular Hgb Conc. 33.2 g/dL (32.0-36.0); Mean Corpuscular Volume 87.3 fL (80.0-100.0); Platelet Count (auto) 148 10^3/uL (140-450); Red Blood Cells 2.76 10^6/uL (4.0-5.20); Red Cell Distribution Width 16.3 % (11.8-14.3)
[2023-10-25 04:23] LABS: Band Neutrophils % (manual) 0; Basophils % (manual) 0 (0.0-2.0); Eosinophils % (manual) 0 (0-7); Metamyelocytes % 0; Myelocytes % 0; Promyelocytes % 0; Reactive Lymphocytes 0
[2023-10-25 06:44] LABS: Base Excess 0.7 mmol/L (-2.0-3.0)
[2023-10-25] MEDS ORDERED: EPINEPHrine HCL 1 MG/1 ML AMP ONE (08:23)
[2023-10-25] MEDS ORDERED: GLYCOPYRROLATE 0.2 MG/ML 1ML VIAL ONE (08:23)
[2023-10-25] MEDS ORDERED: LIDOCAINE 2%HCL (LOCAL ANESTH.) INJ 20ML MDV ONE (08:23)
[2023-10-25] MEDS ORDERED: MIDAZOLAM HCL 5 MG/ML-1ML VIAL ONE (08:24)
[2023-10-25] MEDS ORDERED: LIDOCAINE 2% JELLY 11ml (GLYDO) ONE (08:25)
[2023-10-25] MEDS ORDERED: fentaNYL CITRATE 100 MCG/2 ML VL ONE (08:25)
[2023-10-25] MEDS ORDERED: hydrALAZINE HCL 20 MG/ML VL IV PRN (08:30)
[2023-10-25] MEDS: POTASSIUM PHOSPHATE 22 MEQ in SODIUM CHL 0.9% 100 ML IV ONE (08:50)
[2023-10-25] MEDS: POTASSIUM CHL 20MEQ/100ML 100 ML IV SCH (08:52)
[2023-10-25] MEDS: MAGNESIUM SULFATE 1GM/100ML 100 ML IV ONE (09:25)
[2023-10-25] MEDS: PROPOFOL 100 ML IV SCH (09:45)
[2023-10-25] MEDS: PROPOFOL 100 ML IV ONE (09:55)
[2023-10-25] MEDS: ENOXAPARIN SOD 40 MG/0.4 ML SYRINGE SC SCH (10:02)
[2023-10-25 10:06] LABS: Blast Cells 3; Lymphocytes % (manual) 37 (10.0-50.0); Monocytes % (manual) 5 (0-12); Platelet Estimate Adequate
[2023-10-25 10:47] LABS: Free T4 (Free Thyroxine) 1.1 ng/dL (0.89-1.76)
[2023-10-25] MEDS: SULFAMETH-TRIMETH 80/16MG-ML 25 ML in D5W 5% 500 ML IV SCH (16:21)
[2023-10-25 22:05] LABS: Protein, CSF 26.2 mg/dL (15-45)
[2023-10-25 22:43] LABS: CSF White Blood Cells 8 CUMM (0-5); Description,CSF CLEAR
[2023-10-26] VITALS (101 sets, daily range): BP systolic 86–152; BP diastolic 58–300; PULSE 101–125; RESP 11–24; TEMP 96.3–100.8; O2SAT 92–100
[2023-10-26 04:03] LABS: Basophils # (auto) 0 10 ^3/uL (0-0.2); Basophils % (auto) 0.7 % (0.0-2.0); Eosinophils # (auto) 0.1 10 ^3/uL (0-0.8); Eosinophils % (auto) 1.3 % (0.0-7.0); Hematocrit 26.5 % (36.0-46.0); Hemoglobin 8.9 g/dL (12.2-16.2); Lymphocytes # (auto) 3.7 10 ^3/uL (0.4-5.4); Lymphocytes % (auto) 50.1 % (10.0-50.0); Mean Corpuscular Hemoglobin 28.7 pg (28.0-32.0); Mean Corpuscular Hgb Conc. 33.5 g/dL (32.0-36.0); Mean Corpuscular Volume 85.7 fL (80.0-100.0); Monocytes # (auto) 0.9 10 ^3/uL (0-1.3); Monocytes % (auto) 12.8 % (0.0-12.0); Neutrophils # (auto) 2.6 10 ^3/uL (1.6-8.6); Neutrophils % (auto) 35.1 % (37.0-80.0); Nucleated Red Blood Cells % 0.2 %; Platelet Count (auto) 144 10^3/uL (140-450); Red Cell Distribution Width 16.4 % (11.8-14.3); White Blood Cell 7.4 10^3/uL (4.4-10.8)
[2023-10-26 04:22] LABS: Alanine Aminotransferase 75 U/L (7-40); Albumin 2.8 g/dL (3.2-4.8); Alkaline Phosphatase 45 U/L (46-116); Anion Gap 10 (5-15); Aspartate Aminotransferase 25 U/L (13-40); Bilirubin, Total 0.2 mg/dL (0.2-1.0); Blood Urea Nitrogen 6 mg/dL (9-23); Calcium 8.2 mg/dL (8.7-10.4); Carbon Dioxide 23 mmol/L (20-30); Chloride 106 mmol/L (98-107); Glucose 83 mg/dL (74-106); Magnesium 1.7 mg/dL (1.6-2.6); Phosphorus 2.5 mg/dL (2.4-5.1); Potassium 3.4 mmol/L (3.5-5.1); Sodium 139 mmol/L (136-145); Total Protein 5.1 g/dL (5.7-8.2)
[2023-10-26] MEDS: MAGNESIUM SULFATE 1GM/100ML 100 ML IV SCH (05:55)
[2023-10-26] MEDS: POTASSIUM CHL 20MEQ/100ML 100 ML IV ONE (05:55)
[2023-10-26 07:23] LABS: Base Excess 1.9 mmol/L (-2.0-3.0)
[2023-10-26] MEDS: FUROSEMIDE 20 MG/2 ML VIAL IV ONE ×2 (12:18→20:00)
[2023-10-27] VITALS (106 sets, daily range): BP systolic 92–148; BP diastolic 52–82; PULSE 96–152; RESP 11–30; TEMP 82.6–100.6; O2SAT 91–99
[2023-10-27 04:01] LABS: Hematocrit 27.3 % (36.0-46.0); Hemoglobin 9.1 g/dL (12.2-16.2); Mean Corpuscular Hemoglobin 28.6 pg (28.0-32.0); Mean Corpuscular Hgb Conc. 33.2 g/dL (32.0-36.0); Platelet Count (auto) 154 10^3/uL (140-450); Red Blood Cells 3.18 10^6/uL (4.0-5.20); Red Cell Distribution Width 16.3 % (11.8-14.3); White Blood Cell 8.3 10^3/uL (4.4-10.8)
[2023-10-27 04:03] LABS: Chloride 106 mmol/L (98-107); Potassium 3.1 mmol/L (3.5-5.1); Sodium 140 mmol/L (136-145)
[2023-10-27 04:04] LABS: Anion Gap 9 (5-15); Calcium 8.3 mg/dL (8.7-10.4); Carbon Dioxide 25 mmol/L (20-30)
[2023-10-27 04:06] LABS: Basophils % (manual) 0 (0.0-2.0); Blast Cells 0; Eosinophils % (manual) 0 (0-7); Metamyelocytes % 0; Myelocytes % 0; Promyelocytes % 0
[2023-10-27 04:09] LABS: Glucose 138 mg/dL (74-106)
[2023-10-27 04:10] LABS: BUN/Creatinine Ratio 9.4 (10.0-20.0); Blood Urea Nitrogen < 5 mg/dL (9-23); Magnesium 1.8 mg/dL (1.6-2.6)
[2023-10-27 05:11] LABS: Band Neutrophils % (manual) 8; Lymphocytes % (manual) 50 (10.0-50.0); Monocytes % (manual) 4 (0-12); Reactive Lymphocytes 8
[2023-10-27 05:12] LABS: Platelet Estimate Adequate
[2023-10-27] MEDS: POTASSIUM CHL 20MEQ/100ML 100 ML IV SCH (06:00)
[2023-10-27 08:52] LABS: Base Excess 1.3 mmol/L (-2.0-3.0)
[2023-10-27] MEDS: IOHEXOL 350 MG/ML 100ML IJ ONE (09:40)
[2023-10-27] MEDS ORDERED: POTASSIUM CHL 20MEQ/100ML 100 ML IV SCH (10:00)
[2023-10-27] MEDS: FUROSEMIDE 20 MG/2 ML VIAL IV SCH (10:00)
[2023-10-27] MEDS: POTASSIUM CHL 20MEQ/100ML 100 ML IV ONE (10:21)
[2023-10-27] MEDS: dilTIAZem 25 MG/5 ML VIAL IV ONE (23:47)
[2023-10-28] VITALS (107 sets, daily range): BP systolic 86–172; BP diastolic 42–75; PULSE 89–157; RESP 13–34; TEMP 97.7–101.3; O2SAT 90–99
[2023-10-28 03:57] LABS: Hematocrit 27.8 % (36.0-46.0); Hemoglobin 9.3 g/dL (12.2-16.2); Mean Corpuscular Hemoglobin 28.7 pg (28.0-32.0); Mean Corpuscular Hgb Conc. 33.4 g/dL (32.0-36.0); Platelet Count (auto) 182 10^3/uL (140-450); Red Blood Cells 3.24 10^6/uL (4.0-5.20); White Blood Cell 9.3 10^3/uL (4.4-10.8)
[2023-10-28 04:00] LABS: Basophils % (manual) 0 (0.0-2.0); Blast Cells 0; Metamyelocytes % 0; Myelocytes % 0; Promyelocytes % 0
[2023-10-28 04:09] LABS: Alkaline Phosphatase 49 U/L (46-116)
[2023-10-28 04:10] LABS: Alanine Aminotransferase 51 U/L (7-40); Anion Gap 6 (5-15); Aspartate Aminotransferase 28 U/L (13-40); BUN/Creatinine Ratio 11.1 (10.0-20.0); Bilirubin, Total < 0.2 mg/dL (0.2-1.0); Blood Urea Nitrogen < 5 mg/dL (9-23); Calcium 8.4 mg/dL (8.7-10.4); Carbon Dioxide 29 mmol/L (20-30); Chloride 105 mmol/L (98-107); Glucose 90 mg/dL (74-106); Magnesium 1.7 mg/dL (1.6-2.6); Phosphorus 3.2 mg/dL (2.4-5.1); Potassium 3.8 mmol/L (3.5-5.1); Sodium 140 mmol/L (136-145); Total Protein 5.5 g/dL (5.7-8.2)
[2023-10-28 05:53] LABS: Band Neutrophils % (manual) 7; Eosinophils % (manual) 2 (0-7); Lymphocytes % (manual) 63 (10.0-50.0); Monocytes % (manual) 8 (0-12); Reactive Lymphocytes 2
[2023-10-28 05:54] LABS: Platelet Estimate Adequate
[2023-10-28] MEDS: PROPOFOL 100 ML IV ONE (07:42)
[2023-10-28] MEDS: dilTIAZem 25 MG/5 ML VIAL IV ONE ×2 (07:42)
[2023-10-28] MEDS: MAGNESIUM SULFATE 1GM/100ML 100 ML IV ONE (09:15)
[2023-10-28 16:19] LABS: COVID19 ANTIGEN SOFIA FIA NEGATIVE (NEGATIVE)
[2023-10-28 21:06] LABS: Legionella pneumophila Abs Non Reactive (Non Reactive); Mycoplasma pneumoniae IgG Ab 634 U/mL (0-99); Mycoplasma pneumoniae IgM Ab <770 U/mL (0-769)
[2023-10-29] VITALS (108 sets, daily range): BP systolic 83–149; BP diastolic 42–98; PULSE 94–146; RESP 14–32; TEMP 98.2–101.1; O2SAT 90–100
[2023-10-29 04:41] LABS: Hematocrit 26.6 % (36.0-46.0); Hemoglobin 9.1 g/dL (12.2-16.2); Mean Corpuscular Hemoglobin 29.3 pg (28.0-32.0); Mean Corpuscular Hgb Conc. 34.2 g/dL (32.0-36.0); Mean Corpuscular Volume 85.8 fL (80.0-100.0); Platelet Count (auto) 198 10^3/uL (140-450); White Blood Cell 7.4 10^3/uL (4.4-10.8)
[2023-10-29 04:48] LABS: Alanine Aminotransferase 45 U/L (7-40); Albumin 2.8 g/dL (3.2-4.8); Alkaline Phosphatase 49 U/L (46-116); Anion Gap 5 (5-15); Aspartate Aminotransferase 32 U/L (13-40); BUN/Creatinine Ratio 10.2 (10.0-20.0); Basophils % (manual) 0 (0.0-2.0); Bilirubin, Total < 0.2 mg/dL (0.2-1.0); Blast Cells 0; Blood Urea Nitrogen 5 mg/dL (9-23); Calcium 8.4 mg/dL (8.7-10.4); Carbon Dioxide 30 mmol/L (20-30); Chloride 102 mmol/L (98-107); Glucose 94 mg/dL (74-106); Magnesium 1.7 mg/dL (1.6-2.6); Metamyelocytes % 0; Myelocytes % 0; Phosphorus 3.9 mg/dL (2.4-5.1); Potassium 3.7 mmol/L (3.5-5.1); Promyelocytes % 0; Sodium 137 mmol/L (136-145); Total Protein 5.4 g/dL (5.7-8.2)
[2023-10-29 05:08] LABS: HSV-1 DNA CSF Negative (Negative); HSV-2 DNA Negative (Negative)
[2023-10-29 06:00] LABS: Band Neutrophils % (manual) 3; Eosinophils % (manual) 1 (0-7); Lymphocytes % (manual) 58 (10.0-50.0); Monocytes % (manual) 7 (0-12); Reactive Lymphocytes 7
[2023-10-29 06:01] LABS: Platelet Estimate Adequate
[2023-10-29 07:20] LABS: Base Excess 3.2 mmol/L (-2.0-3.0)
[2023-10-29] MEDS: Jevity 1.2 Cal/Fiber 1 Liter GT SCH (10:06)
[2023-10-29 12:07] LABS: QuantiFERON-TB Gold Plus Negative (Negative)
[2023-10-29 12:07] LABS: VDRL, Cererbrospinal Fluid Non Reactive (Non Rea:<1:1)
[2023-10-29 14:06] LABS: CAP Mandated Reflex to Culture Not Indicated (.); Cryptococcus Antigen CSF Negative (Negative)
[2023-10-29] MEDS: ISONIAZID 300 MG TAB PO SCH (17:15)
[2023-10-29] MEDS: PYRAZINAMIDE 500 MG TAB PO SCH (17:30)
[2023-10-29] MEDS: MICAFUNGIN SODIUM 100 MG in SODIUM CHL 0.9% 100 ML IV ONE (22:07)
[2023-10-29] MEDS: ACETAMINOPHEN 325 MG TAB PO SCH (22:08)
[2023-10-30] VITALS (109 sets, daily range): BP systolic 70–138; BP diastolic 30–80; PULSE 75–140; RESP 12–29; TEMP 97.5–100; O2SAT 93–100
[2023-10-30 01:35] LABS: Chloride 104 mmol/L (98-107); Potassium 4.1 mmol/L (3.5-5.1); Sodium 136 mmol/L (136-145)
[2023-10-30 01:36] LABS: Anion Gap 2 (5-15); Calcium 7.9 mg/dL (8.7-10.4); Carbon Dioxide 30 mmol/L (20-30)
[2023-10-30 01:41] LABS: Glucose 141 mg/dL (74-106)
[2023-10-30 01:57] LABS: BUN/Creatinine Ratio 8.6 (10.0-20.0); Blood Urea Nitrogen < 5 mg/dL (9-23)
[2023-10-30 02:06] LABS: Coccidioides CF Antibody <1:2 (<1:2)
[2023-10-30 03:44] LABS: Hematocrit 26.9 % (36.0-46.0); Mean Corpuscular Hgb Conc. 33.6 g/dL (32.0-36.0); Mean Corpuscular Volume 86.3 fL (80.0-100.0); Platelet Count (auto) 227 10^3/uL (140-450); Red Blood Cells 3.11 10^6/uL (4.0-5.20); Red Cell Distribution Width 16.7 % (11.8-14.3); White Blood Cell 8.9 10^3/uL (4.4-10.8)
[2023-10-30 03:48] LABS: Basophils % (manual) 0 (0.0-2.0); Blast Cells 0; Metamyelocytes % 0; Myelocytes % 0; Promyelocytes % 0
[2023-10-30 04:02] LABS: Alanine Aminotransferase 44 U/L (7-40); Albumin 2.8 g/dL (3.2-4.8); Alkaline Phosphatase 51 U/L (46-116); Anion Gap 5 (5-15); Aspartate Aminotransferase 39 U/L (13-40); BUN/Creatinine Ratio 8.9 (10.0-20.0); Blood Urea Nitrogen 5 mg/dL (9-23); Calcium 8.1 mg/dL (8.7-10.4); Carbon Dioxide 29 mmol/L (20-30); Chloride 103 mmol/L (98-107); Glucose 125 mg/dL (74-106); Magnesium 1.7 mg/dL (1.6-2.6); Potassium 3.8 mmol/L (3.5-5.1); Sodium 137 mmol/L (136-145)
[2023-10-30 04:03] LABS: Bilirubin, Total < 0.2 mg/dL (0.2-1.0); Phosphorus 3.6 mg/dL (2.4-5.1); Total Protein 5.4 g/dL (5.7-8.2)
[2023-10-30 06:41] LABS: Band Neutrophils % (manual) 2; Eosinophils % (manual) 5 (0-7); Lymphocytes % (manual) 56 (10.0-50.0); Monocytes % (manual) 7 (0-12); Platelet Estimate Adequate; Reactive Lymphocytes 3
[2023-10-30 06:42] LABS: Anisocytosis Slight; Large Platelets FEW
[2023-10-30 07:29] LABS: Base Excess 0.5 mmol/L (-2.0-3.0)
[2023-10-30] MEDS: D5W 5% IV SCH (10:00)
[2023-10-30] MEDS: AMPHOTERICIN B LIPOSOME IV SCH (10:00)
[2023-10-30] MEDS: rifAMPin 300 MG CAP PO SCH (10:12)
[2023-10-30] MEDS: ETHAMBUTOL HCL 400 MG TAB PO SCH (10:13)
[2023-10-30] MEDS: diphenhdrAMINE HCL 50 MG/1 ML VL IV SCH (10:27)
[2023-10-30 13:07] LABS: Aspergillus flavus Negative (Neg:<1:1); Aspergillus fumigatus Negative (Neg:<1:1); Aspergillus niger Negative (Neg:<1:1); Blastomyces Antibody DID Negative (Neg:<1:1)
[2023-10-30] MEDS: LINEZOLID 600MG/300ML 300 ML IV SCH (19:19)
[2023-10-31] VITALS (103 sets, daily range): BP systolic 100–184; BP diastolic 48–86; PULSE 90–158; RESP 12–40; TEMP 95.5–99.9; O2SAT 91–100
[2023-10-31 04:41] LABS: Anion Gap 4 (5-15); Calcium 7.5 mg/dL (8.7-10.4); Carbon Dioxide 26 mmol/L (20-30); Chloride 100 mmol/L (98-107); Hematocrit 25.5 % (36.0-46.0); Hemoglobin 8.8 g/dL (12.2-16.2); Mean Corpuscular Hemoglobin 30.3 pg (28.0-32.0); Mean Corpuscular Hgb Conc. 34.4 g/dL (32.0-36.0); Mean Corpuscular Volume 88.2 fL (80.0-100.0); Platelet Count (auto) 265 10^3/uL (140-450); Potassium 4.4 mmol/L (3.5-5.1); Red Blood Cells 2.89 10^6/uL (4.0-5.20); Red Cell Distribution Width 16.6 % (11.8-14.3); White Blood Cell 10.1 10^3/uL (4.4-10.8)
[2023-10-31 04:46] LABS: Glucose 152 mg/dL (74-106)
[2023-10-31 04:47] LABS: BUN/Creatinine Ratio 12.8 (10.0-20.0); Blood Urea Nitrogen 6 mg/dL (9-23); Magnesium 1.4 mg/dL (1.6-2.6)
[2023-10-31 04:50] LABS: Sodium 130 mmol/L (136-145)
[2023-10-31 04:52] LABS: Partial Thromboplastin Time 24.2 SEC (24.5-34.5); Prothrombin Time 10.6 sec (9.3-11.8)
[2023-10-31 05:06] LABS: Blast Cells 0; Metamyelocytes % 0; Myelocytes % 0; Promyelocytes % 0; Reactive Lymphocytes 0
[2023-10-31] MEDS ORDERED: EPINEPHrine HCL 1 MG/1 ML AMP ONE (06:36)
[2023-10-31] MEDS ORDERED: PHENYLEPHRINE HCL 10 MG/ML VL ONE (06:36)
[2023-10-31] MEDS ORDERED: ROCURONIUM 10MG/ML 10ML VIAL IV ONE (06:38)
[2023-10-31 06:58] LABS: Phosphorus 2.4 mg/dL (2.4-5.1)
[2023-10-31] MEDS: BUPIVACAINE 0.25% INJ 50ML VIAL ONE (07:04)
[2023-10-31] MEDS ORDERED: LIDOCAINE W/ EPINEPHRINE 1% 20ML VIAL ONE (07:05)
[2023-10-31 07:09] LABS: Base Excess 2.9 mmol/L (-2.0-3.0)
[2023-10-31] MEDS ORDERED: fentaNYL CITRATE 100 MCG/2 ML VL ONE (07:09)
[2023-10-31 07:57] LABS: Alanine Aminotransferase 44 U/L (7-40); Albumin 2.7 g/dL (3.2-4.8); Alkaline Phosphatase 51 U/L (46-116); Bilirubin, Total < 0.2 mg/dL (0.2-1.0)
[2023-10-31 08:01] LABS: Aspartate Aminotransferase 55 U/L (13-40)
[2023-10-31 08:55] LABS: Band Neutrophils % (manual) 1; Basophils % (manual) 1 (0.0-2.0); Eosinophils % (manual) 7 (0-7); Lymphocytes % (manual) 51 (10.0-50.0); Monocytes % (manual) 6 (0-12); Platelet Estimate Adequate; Smudge Cells 8 /100 WBC
[2023-10-31] MEDS ORDERED: hydrALAZINE HCL 20 MG/ML VL ONE (09:03)
[2023-10-31] MEDS ORDERED: ROCURONIUM 10MG/ML 10ML VIAL IV PRN (09:15)
[2023-10-31] MEDS: ROCURONIUM 10MG/ML 10ML VIAL IV ONE ×2 (09:25→09:27)
[2023-10-31] MEDS: SODIUM CHLORIDE 0.9% 1,000 ML IV SCH (09:27)
[2023-10-31] MEDS ORDERED: LABETALOL HCL 20 MG/4 ML VL IV PRN (10:00)
[2023-10-31] MEDS: MAGNESIUM SULFATE 1GM/100ML 100 ML IV SCH (11:50)
[2023-11-01] VITALS (111 sets, daily range): BP systolic 96–200; BP diastolic 43–103; PULSE 83–135; RESP 12–32; TEMP 98.2–99; O2SAT 94–100
[2023-11-01 04:18] LABS: Basophils # (auto) 0 10 ^3/uL (0-0.2); Basophils % (auto) 0.4 % (0.0-2.0); Eosinophils # (auto) 0.4 10 ^3/uL (0-0.8); Eosinophils % (auto) 4.6 % (0.0-7.0); Hematocrit 26.6 % (36.0-46.0); Hemoglobin 9.1 g/dL (12.2-16.2); Lymphocytes # (auto) 4.4 10 ^3/uL (0.4-5.4); Mean Corpuscular Hemoglobin 29.4 pg (28.0-32.0); Mean Corpuscular Volume 86.2 fL (80.0-100.0); Monocytes # (auto) 0.7 10 ^3/uL (0-1.3); Monocytes % (auto) 8.2 % (0.0-12.0); Neutrophils # (auto) 3.2 10 ^3/uL (1.6-8.6); Neutrophils % (auto) 36.8 % (37.0-80.0); Nucleated Red Blood Cells % 0.4 %; Platelet Count (auto) 297 10^3/uL (140-450); Red Blood Cells 3.09 10^6/uL (4.0-5.20); Red Cell Distribution Width 16.7 % (11.8-14.3); White Blood Cell 8.7 10^3/uL (4.4-10.8)
[2023-11-01 04:54] LABS: Alanine Aminotransferase 61 U/L (7-40); Albumin 3.2 g/dL (3.2-4.8); Alkaline Phosphatase 67 U/L (46-116); Anion Gap 7 (5-15); Aspartate Aminotransferase 90 U/L (13-40); BUN/Creatinine Ratio 14.6 (10.0-20.0); Blood Urea Nitrogen 7 mg/dL (9-23); Calcium 8.3 mg/dL (8.7-10.4); Carbon Dioxide 24 mmol/L (20-30); Chloride 100 mmol/L (98-107); Glucose 119 mg/dL (74-106); Magnesium 1.8 mg/dL (1.6-2.6); Potassium 4.5 mmol/L (3.5-5.1); Sodium 131 mmol/L (136-145)
[2023-11-01 04:55] LABS: Bilirubin, Total 0.4 mg/dL (0.2-1.0); Phosphorus 3.7 mg/dL (2.4-5.1); Total Protein 6.1 g/dL (5.7-8.2)
[2023-11-01 07:32] LABS: Base Excess 1.5 mmol/L (-2.0-3.0)
[2023-11-01] MEDS: PROPOFOL 100 ML IV ONE (13:56)
[2023-11-01] MEDS: PROPOFOL 100 ML IV SCH (14:00)
[2023-11-01] MEDS ORDERED: LIDOCAINE 2%HCL (LOCAL ANESTH.) INJ 20ML MDV ONE (16:03)
[2023-11-01] MEDS ORDERED: SODIUM CHLORIDE LOCK 10 ML ONE (16:21)
[2023-11-01] MEDS: fentaNYL CITRATE 100 MCG/2 ML VL ONE (17:02)
[2023-11-01] MEDS: MIDAZOLAM HCL 5 MG/ML-1ML VIAL ONE (17:02)
[2023-11-01] MEDS: ceFAZolin 1GM/50ML 50 ML IV ONE ×2 (17:36→18:54)
[2023-11-01] MEDS: ROCURONIUM 10MG/ML 10ML VIAL IV PRN (23:32)
[2023-11-02] VITALS (103 sets, daily range): BP systolic 76–196; BP diastolic 36–106; PULSE 87–156; RESP 12–44; TEMP 82.9–100; O2SAT 95–100
[2023-11-02] MEDS ORDERED: LABETALOL HCL 20 MG/4 ML VL IV PRN ×2 (01:30)
[2023-11-02 03:52] LABS: Basophils # (auto) 0 10 ^3/uL (0-0.2); Basophils % (auto) 0.4 % (0.0-2.0); Eosinophils # (auto) 0.3 10 ^3/uL (0-0.8); Eosinophils % (auto) 2.8 % (0.0-7.0); Hematocrit 29.8 % (36.0-46.0); Lymphocytes # (auto) 3.7 10 ^3/uL (0.4-5.4); Lymphocytes % (auto) 40.2 % (10.0-50.0); Mean Corpuscular Hemoglobin 29.4 pg (28.0-32.0); Mean Corpuscular Hgb Conc. 33.4 g/dL (32.0-36.0); Monocytes # (auto) 0.7 10 ^3/uL (0-1.3); Monocytes % (auto) 7.5 % (0.0-12.0); Neutrophils # (auto) 4.5 10 ^3/uL (1.6-8.6); Neutrophils % (auto) 49.1 % (37.0-80.0); Nucleated Red Blood Cells % 0.5 %; Platelet Count (auto) 351 10^3/uL (140-450); Red Blood Cells 3.39 10^6/uL (4.0-5.20); Red Cell Distribution Width 16.9 % (11.8-14.3); White Blood Cell 9.3 10^3/uL (4.4-10.8)
[2023-11-02 04:04] LABS: Alanine Aminotransferase 83 U/L (7-40); Albumin 3.4 g/dL (3.2-4.8); Alkaline Phosphatase 76 U/L (46-116); Anion Gap 6 (5-15); Aspartate Aminotransferase 128 U/L (13-40); BUN/Creatinine Ratio 12.5 (10.0-20.0); Blood Urea Nitrogen 6 mg/dL (9-23); Calcium 8.6 mg/dL (8.7-10.4); Carbon Dioxide 25 mmol/L (20-30); Chloride 102 mmol/L (98-107); Glucose 130 mg/dL (74-106); Sodium 133 mmol/L (136-145)
[2023-11-02 04:05] LABS: Magnesium 1.6 mg/dL (1.6-2.6)
[2023-11-02 04:06] LABS: Bilirubin, Total 0.3 mg/dL (0.2-1.0); Phosphorus 3.3 mg/dL (2.4-5.1); Total Protein 6.5 g/dL (5.7-8.2)
[2023-11-02] MEDS ORDERED: AMIODARONE BOLUS KIT 100 ML IV ONE (05:04)
[2023-11-02] MEDS: AMIODARONE 450mg/250ml AE 250 ML IV SCH (05:06)
[2023-11-02] MEDS: Ensure Enlive Vanilla 8oz Bottle PO SCH (07:00)
[2023-11-02] MEDS ORDERED: AMIODARONE 450mg/250ml AE 250 ML IV SCH (11:00)
[2023-11-02] MEDS: SODIUM CHLORIDE 0.9% 500 ML IV ONE (12:39)
[2023-11-02] MEDS: fentaNYL Drip 2500mCg/250mlNS 250 ML IV ONE (15:16)
[2023-11-02] MEDS: fentaNYL Drip 2500mCg/250mlNS 250 ML IV SCH (15:16)
[2023-11-03] VITALS (108 sets, daily range): BP systolic 80–161; BP diastolic 38–90; PULSE 79–141; RESP 12–36; TEMP 96.6–100.2; O2SAT 95–100
[2023-11-03] MEDS: PROPOFOL 100 ML IV ONE (02:19)
[2023-11-03 04:22] LABS: Alanine Aminotransferase 58 U/L (7-40); Alkaline Phosphatase 64 U/L (46-116); Anion Gap 4 (5-15); Aspartate Aminotransferase 63 U/L (13-40); BUN/Creatinine Ratio 17.9 (10.0-20.0); Blood Urea Nitrogen 7 mg/dL (9-23); Calcium 8.4 mg/dL (8.7-10.4); Carbon Dioxide 27 mmol/L (20-30); Chloride 104 mmol/L (98-107); Glucose 138 mg/dL (74-106); Potassium 3.6 mmol/L (3.5-5.1); Sodium 135 mmol/L (136-145)
[2023-11-03 04:24] LABS: Albumin 2.8 g/dL (3.2-4.8); Bilirubin, Total 0.2 mg/dL (0.2-1.0); Total Protein 5.3 g/dL (5.7-8.2)
[2023-11-03 04:40] LABS: Hematocrit 24.3 % (36.0-46.0); Hemoglobin 7.9 g/dL (12.2-16.2); Mean Corpuscular Hemoglobin 28.6 pg (28.0-32.0); Mean Corpuscular Hgb Conc. 32.4 g/dL (32.0-36.0); Mean Corpuscular Volume 88.3 fL (80.0-100.0); Platelet Count (auto) 307 10^3/uL (140-450); Red Blood Cells 2.75 10^6/uL (4.0-5.20); Red Cell Distribution Width 16.5 % (11.8-14.3); White Blood Cell 4.7 10^3/uL (4.4-10.8)
[2023-11-03 04:42] LABS: Band Neutrophils % (manual) 0; Basophils % (manual) 0 (0.0-2.0); Blast Cells 0; Metamyelocytes % 0; Myelocytes % 0; Promyelocytes % 0; Reactive Lymphocytes 0
[2023-11-03 04:54] LABS: Magnesium 1.6 mg/dL (1.6-2.6)
[2023-11-03 05:19] LABS: Eosinophils % (manual) 3 (0-7); Large Platelets FEW; Lymphocytes % (manual) 26 (10.0-50.0); Monocytes % (manual) 14 (0-12); Platelet Estimate Adequa; Smudge Cells 4 /100 WBC
[2023-11-03 06:40] LABS: Base Excess 0.3 mmol/L (-2.0-3.0)
[2023-11-03] MEDS: POTASSIUM CHL 20MEQ/100ML 100 ML IV ONE (13:16)
[2023-11-03] MEDS: MAGNESIUM SULFATE 1GM/100ML 100 ML IV ONE (13:17)
[2023-11-04] VITALS (106 sets, daily range): BP systolic 78–162; BP diastolic 37–94; PULSE 86–153; RESP 11–40; TEMP 96.1–100.2; O2SAT 96–100
[2023-11-04] MEDS: CEFEPIME 1GM/ 50ML 50 ML IV SCH (02:00)
[2023-11-04 04:26] LABS: Basophils # (auto) 0 10 ^3/uL (0-0.2); Eosinophils # (auto) 0.2 10 ^3/uL (0-0.8); Hemoglobin 8.3 g/dL (12.2-16.2); Nucleated Red Blood Cells % 0.1 %; White Blood Cell 4.7 10^3/uL (4.4-10.8)
[2023-11-04 04:30] LABS: Basophils % (auto) 0.8 % (0.0-2.0); Eosinophils % (auto) 3.6 % (0.0-7.0); Hematocrit 24.4 % (36.0-46.0); Lymphocytes # (auto) 2.3 10 ^3/uL (0.4-5.4); Lymphocytes % (auto) 49.2 % (10.0-50.0); Mean Corpuscular Hemoglobin 29.2 pg (28.0-32.0); Mean Corpuscular Hgb Conc. 33.9 g/dL (32.0-36.0); Monocytes # (auto) 0.5 10 ^3/uL (0-1.3); Monocytes % (auto) 11.6 % (0.0-12.0); Neutrophils # (auto) 1.6 10 ^3/uL (1.6-8.6); Neutrophils % (auto) 34.8 % (37.0-80.0); Platelet Count (auto) 350 10^3/uL (140-450); Red Blood Cells 2.83 10^6/uL (4.0-5.20); Red Cell Distribution Width 16.2 % (11.8-14.3)
[2023-11-04 04:40] LABS: Alanine Aminotransferase 52 U/L (7-40); Alkaline Phosphatase 68 U/L (46-116); Anion Gap 7 (5-15); Aspartate Aminotransferase 47 U/L (13-40); BUN/Creatinine Ratio 13.9 (10.0-20.0); Blood Urea Nitrogen 5 mg/dL (9-23); Calcium 8.6 mg/dL (8.7-10.4); Carbon Dioxide 26 mmol/L (20-30); Chloride 105 mmol/L (98-107); Glucose 98 mg/dL (74-106); Magnesium 1.5 mg/dL (1.6-2.6); Potassium 3.1 mmol/L (3.5-5.1); Sodium 138 mmol/L (136-145)
[2023-11-04 04:41] LABS: Bilirubin, Total 0.4 mg/dL (0.2-1.0); Phosphorus 2.9 mg/dL (2.4-5.1); Total Protein 5.5 g/dL (5.7-8.2)
[2023-11-04] MEDS: POTASSIUM CHL 20MEQ/100ML 100 ML IV ONE (08:35)
[2023-11-04] MEDS: LABETALOL HCL 20 MG/4 ML VL IV PRN (09:13)
[2023-11-04] MEDS: POTASSIUM CHL 20MEQ/100ML 100 ML IV SCH (11:14)
[2023-11-04] MEDS: ESMOLOL HCL-NS 10MG/ML 250 ML IV SCH (14:45)
[2023-11-04] MEDS: MAGNESIUM SULFATE 1GM/100ML 100 ML IV SCH (16:19)
[2023-11-04 21:20] LABS: Basophils # (auto) 0 10 ^3/uL (0-0.2); Basophils % (auto) 1.2 % (0.0-2.0); Eosinophils # (auto) 0.3 10 ^3/uL (0-0.8); Eosinophils % (auto) 7.4 % (0.0-7.0); Hematocrit 23.2 % (36.0-46.0); Hemoglobin 7.5 g/dL (12.2-16.2); Lymphocytes # (auto) 1.8 10 ^3/uL (0.4-5.4); Lymphocytes % (auto) 46.1 % (10.0-50.0); Mean Corpuscular Hemoglobin 28.2 pg (28.0-32.0); Mean Corpuscular Hgb Conc. 32.5 g/dL (32.0-36.0); Mean Corpuscular Volume 86.9 fL (80.0-100.0); Monocytes # (auto) 0.3 10 ^3/uL (0-1.3); Monocytes % (auto) 8.6 % (0.0-12.0); Neutrophils # (auto) 1.4 10 ^3/uL (1.6-8.6); Neutrophils % (auto) 36.7 % (37.0-80.0); Nucleated Red Blood Cells % 0.4 %; Platelet Count (auto) 335 10^3/uL (140-450); Red Blood Cells 2.67 10^6/uL (4.0-5.20); Red Cell Distribution Width 16.2 % (11.8-14.3); White Blood Cell 3.9 10^3/uL (4.4-10.8)
[2023-11-04 21:56] LABS: Potassium 3.7 mmol/L (3.5-5.1)
[2023-11-04 22:03] LABS: Magnesium 1.8 mg/dL (1.6-2.6)
[2023-11-04 22:04] LABS: Alanine Aminotransferase 45 U/L (7-40); Alkaline Phosphatase 70 U/L (46-116); Anion Gap 7 (5-15); Aspartate Aminotransferase 33 U/L (13-40); Bilirubin, Total 0.3 mg/dL (0.2-1.0); Calcium 8.4 mg/dL (8.7-10.4); Carbon Dioxide 25 mmol/L (20-30); Chloride 108 mmol/L (98-107); Glucose 101 mg/dL (74-106); Potassium 3.8 mmol/L (3.5-5.1); Sodium 140 mmol/L (136-145)
[2023-11-04 22:05] LABS: Total Protein 5.6 g/dL (5.7-8.2)
[2023-11-04 22:09] LABS: BUN/Creatinine Ratio 11.9 (10.0-20.0); Blood Urea Nitrogen < 5 mg/dL (9-23)
[2023-11-04] MEDS: Jevity 1.2 Cal/Fiber 1 Liter GT SCH (22:19)
[2023-11-04] MEDS: DexmedeTOMIDine 4 ML IV ONE (23:45)
[2023-11-05] VITALS (103 sets, daily range): BP systolic 90–150; BP diastolic 39–97; PULSE 51–131; RESP 9–44; TEMP 88.3–101; O2SAT 77–100
[2023-11-05 07:13] LABS: Base Excess 0.8 mmol/L (-2.0-3.0)
[2023-11-05 09:20] LABS: Hematocrit 22.5 % (36.0-46.0); Hemoglobin 7.9 g/dL (12.2-16.2); Mean Corpuscular Hemoglobin 30.3 pg (28.0-32.0); Mean Corpuscular Hgb Conc. 35.1 g/dL (32.0-36.0); Mean Corpuscular Volume 86.3 fL (80.0-100.0); Platelet Count (auto) 335 10^3/uL (140-450); Red Blood Cells 2.61 10^6/uL (4.0-5.20); Red Cell Distribution Width 16.1 % (11.8-14.3); White Blood Cell 4.5 10^3/uL (4.4-10.8)
[2023-11-05 09:23] LABS: Basophils % (manual) 0 (0.0-2.0); Blast Cells 0; Myelocytes % 0; Promyelocytes % 0; Reactive Lymphocytes 0
[2023-11-05 09:33] LABS: Alanine Aminotransferase 40 U/L (7-40); Alkaline Phosphatase 72 U/L (46-116); Anion Gap 7 (5-15); Aspartate Aminotransferase 32 U/L (13-40); BUN/Creatinine Ratio 13.6 (10.0-20.0); Blood Urea Nitrogen 6 mg/dL (9-23); Calcium 8.5 mg/dL (8.7-10.4); Carbon Dioxide 26 mmol/L (20-30); Chloride 107 mmol/L (98-107); Glucose 116 mg/dL (74-106); Magnesium 1.6 mg/dL (1.6-2.6); Potassium 3.5 mmol/L (3.5-5.1); Sodium 140 mmol/L (136-145)
[2023-11-05 09:34] LABS: Bilirubin, Total 0.3 mg/dL (0.2-1.0); Total Protein 5.6 g/dL (5.7-8.2)
[2023-11-05 09:53] LABS: Band Neutrophils % (manual) 10; Eosinophils % (manual) 3 (0-7); Lymphocytes % (manual) 68 (10.0-50.0); Metamyelocytes % 2; Monocytes % (manual) 6 (0-12)
[2023-11-05 09:54] LABS: Platelet Estimate Adequate
[2023-11-05] MEDS: levETIRAcetam 1000 mg/100ml 100 ML IV ONE (17:08)
[2023-11-05] MEDS: FLUCONAZOLE 200MG/100ML 100 ML IV ONE (17:48)
[2023-11-05] MEDS: levETIRAcetam 1000 mg/100ml 100 ML IV SCH (22:18)
[2023-11-06] VITALS (109 sets, daily range): BP systolic 93–158; BP diastolic 50–89; PULSE 48–109; RESP 9–37; TEMP 97.4–100.2; O2SAT 77–100
[2023-11-06 04:04] LABS: Mean Corpuscular Volume 86.9 fL (80.0-100.0); White Blood Cell 3.4 10^3/uL (4.4-10.8)
[2023-11-06 04:11] LABS: Alanine Aminotransferase 37 U/L (7-40); Albumin 2.9 g/dL (3.2-4.8); Alkaline Phosphatase 61 U/L (46-116); Anion Gap 6 (5-15); Aspartate Aminotransferase 28 U/L (13-40); Bilirubin, Total 0.2 mg/dL (0.2-1.0); Calcium 8.7 mg/dL (8.7-10.4); Carbon Dioxide 27 mmol/L (20-30); Chloride 111 mmol/L (98-107); Glucose 126 mg/dL (74-106); Magnesium 1.8 mg/dL (1.6-2.6); Potassium 3.1 mmol/L (3.5-5.1); Sodium 144 mmol/L (136-145)
[2023-11-06 04:12] LABS: Total Protein 5.3 g/dL (5.7-8.2)
[2023-11-06 04:13] LABS: Hemoglobin 7.2 g/dL (12.2-16.2); Mean Corpuscular Hemoglobin 29.7 pg (28.0-32.0); Mean Corpuscular Hgb Conc. 34.2 g/dL (32.0-36.0); Platelet Count (auto) 304 10^3/uL (140-450); Red Blood Cells 2.41 10^6/uL (4.0-5.20); Red Cell Distribution Width 16.4 % (11.8-14.3)
[2023-11-06 04:16] LABS: Basophils % (manual) 0 (0.0-2.0); Blast Cells 0; Metamyelocytes % 0; Myelocytes % 0; Promyelocytes % 0; Reactive Lymphocytes 0
[2023-11-06 04:27] LABS: BUN/Creatinine Ratio 13.2 (10.0-20.0); Blood Urea Nitrogen < 5 mg/dL (9-23)
[2023-11-06] MEDS: POTASSIUM CHL 20MEQ/100ML 100 ML IV SCH (05:38)
[2023-11-06 05:43] LABS: Anisocytosis Slight; Band Neutrophils % (manual) 2; Eosinophils % (manual) 1 (0-7); Lymphocytes % (manual) 65 (10.0-50.0); Monocytes % (manual) 10 (0-12); Platelet Estimate Adequate
[2023-11-06 05:44] LABS: Tear Drop Cells FEW
[2023-11-06] MEDS: FLUCONAZOLE 200MG/100ML 100 ML IV SCH (08:44)
[2023-11-06 08:52] LABS: Base Excess -1.3 mmol/L (-2.0-3.0)
[2023-11-06] MEDS: MAGNESIUM SULFATE 1GM/100ML 100 ML IV ONE (10:15)
[2023-11-06] MEDS: PSYLLIUM PWD 5.8GM PKG GT ONE (14:20)
[2023-11-06] MEDS: AMPICILLIN & SULBACTAM SODIUM 3 GM in SODIUM CHL 0.9% 100 ML IV SCH (14:21)
[2023-11-06] MEDS: ALBUTEROL SULF 2.5 MG/0.5ML(0.5%) NEB SOLN NEB PRN (16:24)
[2023-11-06] MEDS: IPRATROPIUM BROM 0.5 MG/2.5ML INH SOL NEB SCH (16:24)
[2023-11-06] MEDS: ACETYLCYSTEINE 10 %(100MG/ML) SOL 4ML NEB SCH (18:12)
[2023-11-06] MEDS: ALBUTEROL SULF 2.5 MG/0.5ML(0.5%) NEB SOLN HHN SCH (18:12)
[2023-11-06] MEDS ORDERED: LINEZOLID 600MG/300ML 300 ML IV SCH (22:00)
[2023-11-06] MEDS: PSYLLIUM PWD 5.8GM PKG GT SCH (22:10)
[2023-11-07] VITALS (84 sets, daily range): BP systolic 121–175; BP diastolic 57–103; PULSE 57–119; RESP 7–34; TEMP 98.6–98.9; O2SAT 92–100
[2023-11-07 04:18] LABS: Hematocrit 23.2 % (36.0-46.0); Hemoglobin 7.6 g/dL (12.2-16.2); Mean Corpuscular Hemoglobin 28.8 pg (28.0-32.0); Mean Corpuscular Hgb Conc. 32.8 g/dL (32.0-36.0); Mean Corpuscular Volume 87.9 fL (80.0-100.0); Platelet Count (auto) 335 10^3/uL (140-450); Red Blood Cells 2.64 10^6/uL (4.0-5.20); White Blood Cell 4.1 10^3/uL (4.4-10.8)
[2023-11-07 04:20] LABS: Band Neutrophils % (manual) 0; Basophils % (manual) 0 (0.0-2.0); Blast Cells 0; Eosinophils % (manual) 0 (0-7); Metamyelocytes % 0; Myelocytes % 0; Promyelocytes % 0; Reactive Lymphocytes 0
[2023-11-07 04:32] LABS: Anion Gap 7 (5-15); Carbon Dioxide 24 mmol/L (20-30); Chloride 112 mmol/L (98-107); Potassium 2.8 mmol/L (3.5-5.1); Sodium 143 mmol/L (136-145)
[2023-11-07 04:33] LABS: Calcium 8.6 mg/dL (8.7-10.4)
[2023-11-07 04:38] LABS: Blood Urea Nitrogen 6 mg/dL (9-23); Glucose 97 mg/dL (74-106)
[2023-11-07 04:39] LABS: Magnesium 1.7 mg/dL (1.6-2.6)
[2023-11-07] MEDS: POTASSIUM CHL 20MEQ/100ML 100 ML IV SCH (05:56)
[2023-11-07 07:38] LABS: Base Excess -1.8 mmol/L (-2.0-3.0)
[2023-11-07 08:17] LABS: Lymphocytes % (manual) 61 (10.0-50.0); Monocytes % (manual) 8 (0-12); Platelet Estimate Adequate
[2023-11-07] MEDS: POTASSIUM CHL 20MEQ/100ML 100 ML IV ONE (09:07)
[2023-11-07] MEDS: MAGNESIUM SULFATE 1GM/100ML 100 ML IV ONE (09:08)
[2023-11-07] MEDS: LORazepam 0.5 MG TAB PO PRN (18:25)
[2023-11-07] MEDS: diphenhdrAMINE HCL 50 MG/1 ML VL IV ONE (20:16)
[2023-11-08] VITALS (37 sets, daily range): BP systolic 123–160; BP diastolic 59–94; PULSE 86–132; RESP 13–39; TEMP 98.3–99.2; O2SAT 91–100
[2023-11-08 06:07] LABS: Basophils # (auto) 0 10 ^3/uL (0-0.2); Basophils % (auto) 0.6 % (0.0-2.0); Eosinophils # (auto) 0 10 ^3/uL (0-0.8); Eosinophils % (auto) 0.2 % (0.0-7.0); Hematocrit 25.8 % (36.0-46.0); Hemoglobin 8.7 g/dL (12.2-16.2); Lymphocytes # (auto) 1.2 10 ^3/uL (0.4-5.4); Lymphocytes % (auto) 23.9 % (10.0-50.0); Mean Corpuscular Hemoglobin 29.5 pg (28.0-32.0); Mean Corpuscular Hgb Conc. 33.6 g/dL (32.0-36.0); Mean Corpuscular Volume 87.6 fL (80.0-100.0); Monocytes # (auto) 0.7 10 ^3/uL (0-1.3); Monocytes % (auto) 13.5 % (0.0-12.0); Neutrophils # (auto) 3.2 10 ^3/uL (1.6-8.6); Neutrophils % (auto) 61.8 % (37.0-80.0); Nucleated Red Blood Cells % 0.1 %; Platelet Count (auto) 312 10^3/uL (140-450); Red Blood Cells 2.94 10^6/uL (4.0-5.20); Red Cell Distribution Width 16.8 % (11.8-14.3); White Blood Cell 5.1 10^3/uL (4.4-10.8)
[2023-11-08 06:26] LABS: Alanine Aminotransferase 33 U/L (7-40); Albumin 3.2 g/dL (3.2-4.8); Alkaline Phosphatase 61 U/L (46-116); Anion Gap 10 (5-15); Aspartate Aminotransferase 26 U/L (13-40); BUN/Creatinine Ratio 11.1 (10.0-20.0); Bilirubin, Total 0.3 mg/dL (0.2-1.0); Blood Urea Nitrogen 6 mg/dL (9-23); Calcium 8.5 mg/dL (8.7-10.4); Carbon Dioxide 23 mmol/L (20-31); Chloride 111 mmol/L (98-107); Glucose 138 mg/dL (74-106); Magnesium 1.5 mg/dL (1.6-2.6); Potassium 2.9 mmol/L (3.5-5.1); Sodium 144 mmol/L (136-145); Total Protein 5.8 g/dL (5.7-8.2)
[2023-11-08] MEDS: MAGNESIUM SULFATE 1GM/100ML 100 ML IV SCH (10:20)
[2023-11-08] MEDS: POTASSIUM CHL 20MEQ/100ML 100 ML IV SCH (10:21)
[2023-11-08] MEDS: IPRATROPIUM BROM 0.5 MG/2.5ML INH SOL NEB SCH (13:37)
[2023-11-08] MEDS: NICOTINE 14 MG/24HR TOPICAL PATCH TD SCH (16:09)
[2023-11-08] MEDS: Ensure HIGH Protein Chocolate 8oz Bottle PO SCH (18:00)
[2023-11-08] MEDS: MELATONIN 5 MG TAB PO ONE (20:49)
[2023-11-09] VITALS (27 sets, daily range): BP systolic 127–164; BP diastolic 73–97; PULSE 81–118; RESP 11–35; TEMP 97.2–99.8; O2SAT 93–100
[2023-11-09 05:47] LABS: Base Excess -1.4 mmol/L (-2.0-3.0)
[2023-11-09 06:13] LABS: Basophils # (auto) 0 10 ^3/uL (0-0.2); Basophils % (auto) 0.9 % (0.0-2.0); Eosinophils # (auto) 0 10 ^3/uL (0-0.8); Eosinophils % (auto) 0.3 % (0.0-7.0); Hemoglobin 8.3 g/dL (12.2-16.2); Monocytes # (auto) 0.7 10 ^3/uL (0-1.3)
[2023-11-09 06:15] LABS: Hematocrit 24.5 % (36.0-46.0); Lymphocytes % (auto) 52.7 % (10.0-50.0); Mean Corpuscular Hgb Conc. 33.8 g/dL (32.0-36.0); Mean Corpuscular Volume 88.9 fL (80.0-100.0); Monocytes % (auto) 17.7 % (0.0-12.0); Neutrophils # (auto) 1.1 10 ^3/uL (1.6-8.6); Neutrophils % (auto) 28.4 % (37.0-80.0); Nucleated Red Blood Cells % 0.6 %; Platelet Count (auto) 247 10^3/uL (140-450); Red Blood Cells 2.75 10^6/uL (4.0-5.20); Red Cell Distribution Width 17.2 % (11.8-14.3); White Blood Cell 3.8 10^3/uL (4.4-10.8)
[2023-11-09 06:23] LABS: Alanine Aminotransferase 29 U/L (7-40); Albumin 3.2 g/dL (3.2-4.8); Alkaline Phosphatase 56 U/L (46-116); Anion Gap 9 (5-15); Aspartate Aminotransferase 19 U/L (13-40); Bilirubin, Total 0.4 mg/dL (0.2-1.0); Blood Urea Nitrogen < 5 mg/dL (9-23); Calcium 8.5 mg/dL (8.7-10.4); Carbon Dioxide 24 mmol/L (20-31); Chloride 111 mmol/L (98-107); Glucose 129 mg/dL (74-106); Magnesium 1.8 mg/dL (1.6-2.6); Phosphorus 3.4 mg/dL (2.4-5.1); Potassium 2.9 mmol/L (3.5-5.1); Sodium 144 mmol/L (136-145)
[2023-11-09 06:24] LABS: Total Protein 5.7 g/dL (5.7-8.2)
[2023-11-09] MEDS ORDERED: NICOTINE 14 MG/24HR TOPICAL PATCH TD SCH (10:00)
[2023-11-09] MEDS: MORPHINE SULFATE INJ 2 MG/ml SYRG IV PRN (11:24)
[2023-11-09] MEDS: POTASSIUM CHL 20MEQ/100ML 100 ML IV SCH (16:06)
[2023-11-09] MEDS: MAGNESIUM SULFATE 1GM/100ML 100 ML IV SCH (17:17)
[2023-11-09] MEDS: MAGNESIUM SULFATE 1GM/100ML 300 ML IV ONE (18:27)
[2023-11-09] MEDS: OLANZapine 5 MG TAB PO SCH (21:29)
[2023-11-10] VITALS (30 sets, daily range): BP systolic 125–160; BP diastolic 64–88; PULSE 85–125; RESP 16–38; TEMP 99–100.2; O2SAT 91–98
[2023-11-10 05:58] LABS: Basophils # (auto) 0 10 ^3/uL (0-0.2); Basophils % (auto) 1.2 % (0.0-2.0); Eosinophils # (auto) 0 10 ^3/uL (0-0.8); Eosinophils % (auto) 0.8 % (0.0-7.0); Hematocrit 26.9 % (36.0-46.0); Lymphocytes # (auto) 2.2 10 ^3/uL (0.4-5.4); Mean Corpuscular Hemoglobin 29.5 pg (28.0-32.0); Mean Corpuscular Hgb Conc. 33.4 g/dL (32.0-36.0); Mean Corpuscular Volume 88.3 fL (80.0-100.0); Monocytes # (auto) 0.5 10 ^3/uL (0-1.3); Monocytes % (auto) 14.6 % (0.0-12.0); Neutrophils # (auto) 0.7 10 ^3/uL (1.6-8.6); Neutrophils % (auto) 20.5 % (37.0-80.0); Nucleated Red Blood Cells % 0.4 %; Platelet Count (auto) 228 10^3/uL (140-450); Red Blood Cells 3.04 10^6/uL (4.0-5.20); Red Cell Distribution Width 17.5 % (11.8-14.3); White Blood Cell 3.5 10^3/uL (4.4-10.8)
[2023-11-10 06:03] LABS: Lymphocytes % (auto) 62.9 % (10.0-50.0)
[2023-11-10 06:09] LABS: Anion Gap 7 (5-15); Carbon Dioxide 27 mmol/L (20-31); Chloride 110 mmol/L (98-107); Potassium 3.2 mmol/L (3.5-5.1); Sodium 144 mmol/L (136-145)
[2023-11-10 06:10] LABS: Calcium 8.5 mg/dL (8.7-10.4)
[2023-11-10 06:15] LABS: Glucose 94 mg/dL (74-106); Magnesium 2.1 mg/dL (1.6-2.6)
[2023-11-10 06:18] LABS: BUN/Creatinine Ratio 10.9 (10.0-20.0); Blood Urea Nitrogen < 5 mg/dL (9-23)
[2023-11-10] MEDS: POTASSIUM CHL 20MEQ/100ML 100 ML IV SCH (07:54)
[2023-11-10] MEDS: ONDANSETRON HCL 4 MG/2 ML VIAL IV PRN (10:12)
[2023-11-10 17:04] LABS: Urine Bacteria None Seen /hpf (None Seen)
[2023-11-10 18:11] LABS: Urine Blood Negative /uL (Negative); Urine Clarity Clear (Clear); Urine Color Light-Yellow (Yellow); Urine Mucus FEW (None Seen); Urine Protein, UAD Negative (Negative); Urine Urobilinogen Normal (Negative); Urine WBC 1 /hpf (0 - 5)
[2023-11-11] VITALS (17 sets, daily range): BP systolic 136–158; BP diastolic 63–98; PULSE 75–105; RESP 14–22; TEMP 83–99.2; O2SAT 94–100
[2023-11-11 07:44] LABS: Base Excess 3.1 mmol/L (-2.0-3.0)
[2023-11-11 07:55] LABS: White Blood Cell 3.8 10^3/uL (4.4-10.8)
[2023-11-11 07:57] LABS: Hematocrit 25.4 % (36.0-46.0); Hemoglobin 8.5 g/dL (12.2-16.2); Mean Corpuscular Hemoglobin 29.4 pg (28.0-32.0); Mean Corpuscular Hgb Conc. 33.3 g/dL (32.0-36.0); Mean Corpuscular Volume 88.4 fL (80.0-100.0); Platelet Count (auto) 210 10^3/uL (140-450); Red Blood Cells 2.88 10^6/uL (4.0-5.20); Red Cell Distribution Width 18.2 % (11.8-14.3)
[2023-11-11 08:06] LABS: Band Neutrophils % (manual) 0; Basophils % (manual) 0 (0.0-2.0); Blast Cells 0; Metamyelocytes % 0; Myelocytes % 0; Promyelocytes % 0
[2023-11-11 08:11] LABS: Chloride 108 mmol/L (98-107); Potassium 3.4 mmol/L (3.5-5.1); Sodium 144 mmol/L (136-145)
[2023-11-11 08:12] LABS: Anion Gap 9 (5-15); Calcium 8.7 mg/dL (8.7-10.4); Carbon Dioxide 27 mmol/L (20-31)
[2023-11-11 08:17] LABS: BUN/Creatinine Ratio 9.3 (10.0-20.0); Blood Urea Nitrogen 5 mg/dL (9-23); Glucose 107 mg/dL (74-106); Magnesium 1.5 mg/dL (1.6-2.6)
[2023-11-11] MEDS: IPRATROPIUM BROM 0.5 MG/2.5ML INH SOL NEB PRN (10:40)
[2023-11-11] MEDS: ACETAMINOPHEN 325 MG TAB PO ONE (10:48)
[2023-11-11] MEDS: KETOROLAC TROMETH 30 MG/ML 1ML VIAL IV ONE (10:49)
[2023-11-11 12:35] LABS: Eosinophils % (manual) 1 (0-7); Lymphocytes % (manual) 52 (10.0-50.0); Monocytes % (manual) 9 (0-12); Reactive Lymphocytes 2
[2023-11-11 12:36] LABS: Platelet Estimate Adequate
[2023-11-11] MEDS: HYDROcodone-ACET 5/325MG TAB PO PRN (22:13)
[2023-11-12] VITALS (17 sets, daily range): BP systolic 124–144; BP diastolic 48–101; PULSE 74–114; RESP 14–20; TEMP 98.3–99.8; O2SAT 91–99
[2023-11-12] MEDS: LORazepam 0.5 MG TAB PO PRN (01:58)
[2023-11-12 07:40] LABS: Basophils # (auto) 0 10 ^3/uL (0-0.2); Eosinophils # (auto) 0.1 10 ^3/uL (0-0.8); Eosinophils % (auto) 2.4 % (0.0-7.0); Hematocrit 27.4 % (36.0-46.0); Hemoglobin 9.1 g/dL (12.2-16.2); Lymphocytes # (auto) 2.2 10 ^3/uL (0.4-5.4); Lymphocytes % (auto) 48.9 % (10.0-50.0); Mean Corpuscular Hemoglobin 29.5 pg (28.0-32.0); Mean Corpuscular Hgb Conc. 33.2 g/dL (32.0-36.0); Mean Corpuscular Volume 88.7 fL (80.0-100.0); Monocytes # (auto) 0.5 10 ^3/uL (0-1.3); Monocytes % (auto) 10.7 % (0.0-12.0); Neutrophils # (auto) 1.7 10 ^3/uL (1.6-8.6); Nucleated Red Blood Cells % 0.2 %; Platelet Count (auto) 200 10^3/uL (140-450); Red Blood Cells 3.09 10^6/uL (4.0-5.20); White Blood Cell 4.6 10^3/uL (4.4-10.8)
[2023-11-12 08:09] LABS: Alanine Aminotransferase 24 U/L (7-40); Albumin 3.4 g/dL (3.2-4.8); Alkaline Phosphatase 62 U/L (46-116); Anion Gap 6 (5-15); Aspartate Aminotransferase 15 U/L (13-40); Bilirubin, Total 0.3 mg/dL (0.2-1.0); Blood Urea Nitrogen 8 mg/dL (9-23); Calcium 8.9 mg/dL (8.7-10.4); Carbon Dioxide 29 mmol/L (20-31); Chloride 107 mmol/L (98-107); Glucose 87 mg/dL (74-106); Magnesium 1.6 mg/dL (1.6-2.6); Phosphorus 4.4 mg/dL (2.4-5.1); Potassium 4.1 mmol/L (3.5-5.1); Sodium 142 mmol/L (136-145)
[2023-11-12 08:10] LABS: Total Protein 5.9 g/dL (5.7-8.2)
[2023-11-13] VITALS (16 sets, daily range): BP systolic 123–139; BP diastolic 77–93; PULSE 77–124; RESP 14–20; TEMP 98.1–98.9; O2SAT 93–100
[2023-11-13 06:57] LABS: Chloride 103 mmol/L (98-107); Potassium 4.4 mmol/L (3.5-5.1); Sodium 140 mmol/L (136-145)
[2023-11-13 06:58] LABS: Anion Gap 8 (5-15); Calcium 9.3 mg/dL (8.7-10.4); Carbon Dioxide 29 mmol/L (20-31)
[2023-11-13 07:03] LABS: Glucose 104 mg/dL (74-106)
[2023-11-13 07:04] LABS: Blood Urea Nitrogen 13 mg/dL (9-23); Magnesium 1.5 mg/dL (1.6-2.6)
[2023-11-13 07:06] LABS: Phosphorus 4.8 mg/dL (2.4-5.1)
[2023-11-13 07:28] LABS: Hematocrit 31.1 % (36.0-46.0); Hemoglobin 10.3 g/dL (12.2-16.2); Mean Corpuscular Hemoglobin 29.1 pg (28.0-32.0); Mean Corpuscular Volume 88.1 fL (80.0-100.0); Platelet Count (auto) 202 10^3/uL (140-450); Red Blood Cells 3.53 10^6/uL (4.0-5.20); Red Cell Distribution Width 18.1 % (11.8-14.3); White Blood Cell 5.1 10^3/uL (4.4-10.8)
[2023-11-13 07:31] LABS: Band Neutrophils % (manual) 0; Basophils % (manual) 0 (0.0-2.0); Blast Cells 0; Metamyelocytes % 0; Myelocytes % 0; Promyelocytes % 0; Reactive Lymphocytes 0
[2023-11-13 08:03] LABS: Eosinophils % (manual) 1 (0-7); Lymphocytes % (manual) 40 (10.0-50.0); Monocytes % (manual) 11 (0-12); Platelet Estimate Adequate
[2023-11-13] MEDS: CYCLOBENZAPRINE HCL 10 MG TAB PO SCH (17:34)
[2023-11-13] MEDS: OLANZapine 5 MG TAB PO SCH (21:35)
[2023-11-14] VITALS (17 sets, daily range): BP systolic 109–134; BP diastolic 74–83; PULSE 92–143; RESP 16–20; TEMP 97.6–99.2; O2SAT 93–100
[2023-11-14 06:39] LABS: Anion Gap 9 (5-15); Carbon Dioxide 26 mmol/L (20-31); Chloride 104 mmol/L (98-107); Potassium 4.4 mmol/L (3.5-5.1); Sodium 139 mmol/L (136-145)
[2023-11-14 06:40] LABS: Calcium 9.8 mg/dL (8.7-10.4)
[2023-11-14 06:45] LABS: BUN/Creatinine Ratio 24.6 (10.0-20.0); Blood Urea Nitrogen 17 mg/dL (9-23); Glucose 97 mg/dL (74-106); Magnesium 1.6 mg/dL (1.6-2.6)
[2023-11-14 06:47] LABS: Phosphorus 5.3 mg/dL (2.4-5.1)
[2023-11-14 06:58] LABS: Hematocrit 33.6 % (36.0-46.0); Hemoglobin 11.2 g/dL (12.2-16.2); Mean Corpuscular Hemoglobin 29.6 pg (28.0-32.0); Mean Corpuscular Hgb Conc. 33.2 g/dL (32.0-36.0); Platelet Count (auto) 211 10^3/uL (140-450); Red Blood Cells 3.77 10^6/uL (4.0-5.20); White Blood Cell 5.6 10^3/uL (4.4-10.8)
[2023-11-14 07:02] LABS: Basophils % (manual) 0 (0.0-2.0); Blast Cells 0; Metamyelocytes % 0; Myelocytes % 0; Promyelocytes % 0
[2023-11-14 07:29] LABS: Band Neutrophils % (manual) 1; Eosinophils % (manual) 1 (0-7); Lymphocytes % (manual) 55 (10.0-50.0); Monocytes % (manual) 13 (0-12); Platelet Estimate Adequate; RBC Morphology Normal; Reactive Lymphocytes 5
[2023-11-14] MEDS: levETIRAcetam 500 MG TAB PO SCH (20:55)
[2023-11-15] VITALS (11 sets, daily range): BP systolic 100–118; BP diastolic 66–78; PULSE 71–147; RESP 18–21; TEMP 97.9–99.1; O2SAT 92–98
[2023-11-15] MEDS: PANTOPRAZOLE 40 MG TAB PO SCH (05:59)
[2023-11-15 06:52] LABS: Basophils # (auto) 0.1 10 ^3/uL (0-0.2); Basophils % (auto) 0.8 % (0.0-2.0); Eosinophils # (auto) 0.1 10 ^3/uL (0-0.8); Eosinophils % (auto) 0.9 % (0.0-7.0); Hematocrit 36.6 % (36.0-46.0); Hemoglobin 12.3 g/dL (12.2-16.2); Lymphocytes # (auto) 3.9 10 ^3/uL (0.4-5.4); Lymphocytes % (auto) 39.8 % (10.0-50.0); Mean Corpuscular Hemoglobin 29.7 pg (28.0-32.0); Mean Corpuscular Hgb Conc. 33.5 g/dL (32.0-36.0); Mean Corpuscular Volume 88.5 fL (80.0-100.0); Monocytes % (auto) 10.1 % (0.0-12.0); Neutrophils # (auto) 4.8 10 ^3/uL (1.6-8.6); Neutrophils % (auto) 48.4 % (37.0-80.0); Nucleated Red Blood Cells % 0.1 %; Platelet Count (auto) 208 10^3/uL (140-450); Red Blood Cells 4.14 10^6/uL (4.0-5.20); White Blood Cell 9.9 10^3/uL (4.4-10.8)
[2023-11-15 07:11] LABS: Anion Gap 10 (5-15); Carbon Dioxide 25 mmol/L (20-31); Chloride 102 mmol/L (98-107); Potassium 4.4 mmol/L (3.5-5.1); Sodium 137 mmol/L (136-145)
[2023-11-15 07:12] LABS: Calcium 9.9 mg/dL (8.7-10.4)
[2023-11-15 07:16] LABS: Glucose 114 mg/dL (74-106)
[2023-11-15 07:17] LABS: Blood Urea Nitrogen 16 mg/dL (9-23); Magnesium 1.7 mg/dL (1.6-2.6)
[2023-11-15 07:22] LABS: BUN/Creatinine Ratio 27.6 (10.0-20.0)
[2023-11-15] MEDS: FLUCONAZOLE 100 MG TAB PO SCH (08:21)
[2023-11-15] MEDS: MAGNESIUM SULFATE 1GM/100ML 100 ML IV ONE (12:35)
[2023-11-16] VITALS (12 sets, daily range): BP systolic 96–116; BP diastolic 60–79; PULSE 105–132; RESP 17–22; TEMP 97.4–98.1; O2SAT 93–99
[2023-11-16 07:38] LABS: Basophils # (auto) 0.1 10 ^3/uL (0-0.2); Basophils % (auto) 1.1 % (0.0-2.0); Eosinophils # (auto) 0.1 10 ^3/uL (0-0.8); Eosinophils % (auto) 2.1 % (0.0-7.0); Hematocrit 33.7 % (36.0-46.0); Hemoglobin 11.5 g/dL (12.2-16.2); Lymphocytes # (auto) 3.2 10 ^3/uL (0.4-5.4); Lymphocytes % (auto) 55.5 % (10.0-50.0); Mean Corpuscular Hemoglobin 30.3 pg (28.0-32.0); Mean Corpuscular Hgb Conc. 34.1 g/dL (32.0-36.0); Monocytes # (auto) 0.8 10 ^3/uL (0-1.3); Monocytes % (auto) 13.4 % (0.0-12.0); Neutrophils # (auto) 1.6 10 ^3/uL (1.6-8.6); Neutrophils % (auto) 27.9 % (37.0-80.0); Nucleated Red Blood Cells % 0.1 %; Platelet Count (auto) 168 10^3/uL (140-450); Red Blood Cells 3.79 10^6/uL (4.0-5.20); Red Cell Distribution Width 17.5 % (11.8-14.3); White Blood Cell 5.7 10^3/uL (4.4-10.8)
[2023-11-16 07:43] LABS: Chloride 103 mmol/L (98-107); Potassium 4.6 mmol/L (3.5-5.1); Sodium 137 mmol/L (136-145)
[2023-11-16 07:44] LABS: Anion Gap 7 (5-15); Carbon Dioxide 27 mmol/L (20-31)
[2023-11-16 07:45] LABS: Calcium 9.6 mg/dL (8.7-10.4)
[2023-11-16 07:49] LABS: BUN/Creatinine Ratio 32.4 (10.0-20.0); Blood Urea Nitrogen 22 mg/dL (9-23); Glucose 106 mg/dL (74-106)
[2023-11-16] MEDS: ENOXAPARIN SOD 40 MG/0.4 ML SYRINGE SC ONE (15:00)
[2023-11-16] MEDS: ALPRAZolam 0.25 MG TAB PO ONE (16:15)
[2023-11-16] MEDS: METOPROLOL TARTRATE 25 MG TAB PO ONE (17:01)
[2023-11-16] MEDS: ALPRAZolam 0.25 MG TAB PO SCH (22:10)
[2023-11-16] MEDS: METOPROLOL TARTRATE 25 MG TAB PO SCH (22:13)
[2023-11-17] VITALS (9 sets, daily range): BP systolic 106–112; BP diastolic 70–73; PULSE 100–129; RESP 16–20; TEMP 97.5–99; O2SAT 94–99
[2023-11-17] MEDS: ENOXAPARIN SOD 40 MG/0.4 ML SYRINGE SC SCH (08:26)
[2023-11-17] MEDS: diphenhdrAMINE HCL 25 MG CAP PO PRN (16:47)
[2023-11-17] MEDS: LORazepam 2MG/ML-1ML VIAL ONE (17:58)
[2023-11-18] VITALS (15 sets, daily range): BP systolic 103–116; BP diastolic 66–89; PULSE 107–133; RESP 16–20; TEMP 98–98.4; O2SAT 94–100
[2023-11-18 07:51] LABS: Hematocrit 34.5 % (36.0-46.0); Hemoglobin 11.5 g/dL (12.2-16.2); Mean Corpuscular Hemoglobin 29.3 pg (28.0-32.0); Mean Corpuscular Hgb Conc. 33.4 g/dL (32.0-36.0); Mean Corpuscular Volume 87.8 fL (80.0-100.0); Platelet Count (auto) 191 10^3/uL (140-450); Red Blood Cells 3.94 10^6/uL (4.0-5.20); Red Cell Distribution Width 17.5 % (11.8-14.3); White Blood Cell 5.5 10^3/uL (4.4-10.8)
[2023-11-18 08:03] LABS: Alanine Aminotransferase 27 U/L (7-40); Albumin 4.2 g/dL (3.2-4.8); Alkaline Phosphatase 80 U/L (46-116); Anion Gap 8 (5-15); Aspartate Aminotransferase 21 U/L (13-40); Basophils % (manual) 0 (0.0-2.0); Blast Cells 0; Blood Urea Nitrogen 23 mg/dL (9-23); Calcium 9.7 mg/dL (8.7-10.4); Carbon Dioxide 28 mmol/L (20-31); Chloride 101 mmol/L (98-107); Glucose 98 mg/dL (74-106); Magnesium 1.9 mg/dL (1.6-2.6); Metamyelocytes % 0; Myelocytes % 0; Potassium 4.2 mmol/L (3.5-5.1); Promyelocytes % 0; Sodium 137 mmol/L (136-145)
[2023-11-18 08:04] LABS: Bilirubin, Total 0.2 mg/dL (0.2-1.0); Total Protein 7.3 g/dL (5.7-8.2)
[2023-11-18 09:19] LABS: INR 0.96 (0.9-1.15); Partial Thromboplastin Time 25.6 SEC (24.5-34.5); Prothrombin Time 10.2 sec (9.3-11.8)
[2023-11-18] MEDS ORDERED: MIDAZOLAM HCL 2MG/2ML 2ml VIAL (1mg/ml) ONE (09:21)
[2023-11-18] MEDS ORDERED: PROPOFOL 10 MG/ML 20 ML IV ONE (09:37)
[2023-11-18] MEDS: ONDANSETRON HCL 4 MG/2 ML VIAL IV ONE (10:00)
[2023-11-18 10:32] LABS: Free T3 3.25 pg/mL (2.3-4.2)
[2023-11-18 10:33] LABS: Free T4 (Free Thyroxine) 1.11 ng/dL (0.89-1.76)
[2023-11-18 11:21] LABS: Band Neutrophils % (manual) 1; Eosinophils % (manual) 1 (0-7); Lymphocytes % (manual) 58 (10.0-50.0); Monocytes % (manual) 9 (0-12); Platelet Estimate Adequate; Reactive Lymphocytes 4
[2023-11-18] MEDS: ALPRAZolam 0.25 MG TAB PO PRN (17:22)
[2023-11-19] VITALS (15 sets, daily range): BP systolic 97–121; BP diastolic 63–75; PULSE 107–139; RESP 17–22; TEMP 97.8–99.2; O2SAT 9–99
[2023-11-19 06:03] LABS: Hematocrit 32.9 % (36.0-46.0); Hemoglobin 10.9 g/dL (12.2-16.2); Mean Corpuscular Hemoglobin 29.4 pg (28.0-32.0); Platelet Count (auto) 191 10^3/uL (140-450); Red Cell Distribution Width 17.6 % (11.8-14.3); White Blood Cell 5.4 10^3/uL (4.4-10.8)
[2023-11-19 06:08] LABS: Band Neutrophils % (manual) 0; Basophils % (manual) 0 (0.0-2.0); Blast Cells 0; Metamyelocytes % 0; Myelocytes % 0; Promyelocytes % 0; Reactive Lymphocytes 0
[2023-11-19 06:11] LABS: Anion Gap 6 (5-15); Carbon Dioxide 30 mmol/L (20-31); Chloride 103 mmol/L (98-107); Potassium 4.5 mmol/L (3.5-5.1); Sodium 139 mmol/L (136-145)
[2023-11-19 06:12] LABS: Calcium 9.7 mg/dL (8.7-10.4)
[2023-11-19 06:17] LABS: BUN/Creatinine Ratio 27.4 (10.0-20.0); Blood Urea Nitrogen 17 mg/dL (9-23); Glucose 106 mg/dL (74-106)
[2023-11-19 06:18] LABS: Magnesium 1.9 mg/dL (1.6-2.6)
[2023-11-19 08:18] LABS: Eosinophils % (manual) 4 (0-7); Lymphocytes % (manual) 37 (10.0-50.0); Monocytes % (manual) 4 (0-12); Platelet Estimate Adequate
[2023-11-19] MEDS: MAGNESIUM SULFATE 1GM/100ML 100 ML IV ONE (08:41)
[2023-11-19] MEDS: ACETAMINOPHEN 325 MG TAB PO PRN (15:29)
[2023-11-20] VITALS (14 sets, daily range): BP systolic 105–125; BP diastolic 59–82; PULSE 108–145; RESP 16–22; TEMP 97.2–98.7; O2SAT 94–100
[2023-11-20 10:38] LABS: Basophils # (auto) 0 10 ^3/uL (0-0.2); Basophils % (auto) 0.9 % (0.0-2.0); Eosinophils # (auto) 0 10 ^3/uL (0-0.8); Eosinophils % (auto) 0.9 % (0.0-7.0); Hematocrit 34.4 % (36.0-46.0); Hemoglobin 11.3 g/dL (12.2-16.2); Mean Corpuscular Hemoglobin 29.4 pg (28.0-32.0); Mean Corpuscular Hgb Conc. 32.9 g/dL (32.0-36.0); Mean Corpuscular Volume 89.2 fL (80.0-100.0); Monocytes # (auto) 0.7 10 ^3/uL (0-1.3); Monocytes % (auto) 13.9 % (0.0-12.0); Neutrophils # (auto) 1.5 10 ^3/uL (1.6-8.6); Neutrophils % (auto) 28.7 % (37.0-80.0); Platelet Count (auto) 225 10^3/uL (140-450); Red Blood Cells 3.86 10^6/uL (4.0-5.20); Red Cell Distribution Width 16.9 % (11.8-14.3); White Blood Cell 5.3 10^3/uL (4.4-10.8)
[2023-11-20 10:51] LABS: Chloride 104 mmol/L (98-107); Potassium 4.3 mmol/L (3.5-5.1); Sodium 138 mmol/L (136-145)
[2023-11-20 10:52] LABS: Anion Gap 8 (5-15); Calcium 9.6 mg/dL (8.7-10.4); Carbon Dioxide 26 mmol/L (20-31)
[2023-11-20 10:55] LABS: Lymphocytes % (auto) 55.6 % (10.0-50.0)
[2023-11-20 10:57] LABS: BUN/Creatinine Ratio 27.6 (10.0-20.0); Blood Urea Nitrogen 16 mg/dL (9-23); Glucose 129 mg/dL (74-106)
[2023-11-20 10:58] LABS: Magnesium 1.6 mg/dL (1.6-2.6)
[2023-11-20] MEDS: PROPRANOLOL HCL 20 MG TAB PO ONE (14:41)
[2023-11-20] MEDS: PROPRANOLOL HCL 20 MG TAB PO SCH (22:15)
[2023-11-21] VITALS (7 sets, daily range): BP systolic 107–122; BP diastolic 64–82; PULSE 89–150; RESP 16–19; TEMP 97.5–97.9; O2SAT 95–99
[2023-11-21] MEDS ORDERED: ALPR0.25 PO (12:04)
[2023-11-21] MEDS ORDERED: OLAN1TAB19 PO (12:04)
[2023-11-21] MEDS ORDERED: KEP500T PO (12:04)
[2023-11-21] MEDS ORDERED: BICT1TAB4 PO (12:04)
[2023-11-21 14:09] LABS: Hematocrit 34.8 % (36.0-46.0); Hemoglobin 11.5 g/dL (12.2-16.2); Mean Corpuscular Hemoglobin 29.4 pg (28.0-32.0); Mean Corpuscular Hgb Conc. 33.1 g/dL (32.0-36.0); Platelet Count (auto) 231 10^3/uL (140-450); Red Blood Cells 3.91 10^6/uL (4.0-5.20); Red Cell Distribution Width 17.4 % (11.8-14.3)
[2023-11-21 14:15] LABS: Band Neutrophils % (manual) 0; Basophils % (manual) 0 (0.0-2.0); Blast Cells 0; Metamyelocytes % 0; Myelocytes % 0; Promyelocytes % 0; Reactive Lymphocytes 0
[2023-11-21 14:21] LABS: Chloride 104 mmol/L (98-107); Potassium 4.3 mmol/L (3.5-5.1); Sodium 137 mmol/L (136-145)
[2023-11-21 14:22] LABS: Anion Gap 7 (5-15); Calcium 9.7 mg/dL (8.7-10.4); Carbon Dioxide 26 mmol/L (20-31)
[2023-11-21 14:27] LABS: BUN/Creatinine Ratio 26.9 (10.0-20.0); Blood Urea Nitrogen 18 mg/dL (9-23); Glucose 82 mg/dL (74-106); Magnesium 1.6 mg/dL (1.6-2.6)
[2023-11-21 14:44] LABS: Eosinophils % (manual) 2 (0-7); Lymphocytes % (manual) 55 (10.0-50.0); Monocytes % (manual) 12 (0-12); Platelet Estimate Adequate
[2023-11-21] MEDS ORDERED: LORA-1121 PO (14:45)
== END 2023-11-21 15:45 | disposition home or self-care (01) | DRG 5 ==
LOC: ICU WEST 21:32 → DOU IN ICU 11-07 15:32 → TELE-CENTR 11-10 19:34
PROVIDERS: ADMIT Internal Medicine; ATTEND Internal Medicine
PROC: 5A1955Z Respiratory Ventilation, Greater than 96 Consecutive Hours (ICD-10-PCS; principal; 2023-10-23)
PROC: 0BH17EZ Insertion of Endotracheal Airway into Trachea, Via Natural or Artificial Opening (ICD-10-PCS; 2023-10-24)
PROC: 0B9F8ZX Drainage of Right Lower Lung Lobe, Via Natural or Artificial Opening Endoscopic, Diagnostic (ICD-10-PCS; 2023-10-25)
PROC: 009U3ZX Drainage of Spinal Canal, Percutaneous Approach, Diagnostic (ICD-10-PCS; 2023-10-25)
PROC: 0B110F4 Bypass Trachea to Cutaneous with Tracheostomy Device, Open Approach (ICD-10-PCS; 2023-10-31)
PROC: 0DH63UZ Insertion of Feeding Device into Stomach, Percutaneous Approach (ICD-10-PCS; 2023-11-01)
PROC: 30233N1 Transfusion of Nonautologous Red Blood Cells into Peripheral Vein, Percutaneous Approach (ICD-10-PCS; 2023-11-06)
PROC: 0DP68UZ Removal of Feeding Device from Stomach, Via Natural or Artificial Opening Endoscopic (ICD-10-PCS; 2023-11-18)
DX: A41.9 Sepsis, unspecified organism (principal); R65.21 Severe sepsis with septic shock; J69.0 Pneumonitis due to inhalation of food and vomit; G92.8 Other toxic encephalopathy; I21.A1 Myocardial infarction type 2; G93.1 Anoxic brain damage, not elsewhere classified; K81.0 Acute cholecystitis; K22.10 Ulcer of esophagus without bleeding; B20 Human immunodeficiency virus [HIV] disease; J96.01 Acute respiratory failure with hypoxia; N39.0 Urinary tract infection, site not specified; J44.0 Chronic obstructive pulmonary disease with (acute) lower respiratory infection; Z20.822 Contact with and (suspected) exposure to COVID-19; R45.851 Suicidal ideations; F15.10 Other stimulant abuse, uncomplicated; F43.10 Post-traumatic stress disorder, unspecified; J18.9 Pneumonia, unspecified organism; F20.0 Paranoid schizophrenia; I34.1 Nonrheumatic mitral (valve) prolapse; F17.200 Nicotine dependence, unspecified, uncomplicated; R16.1 Splenomegaly, not elsewhere classified; E83.51 Hypocalcemia; D64.9 Anemia, unspecified; R74.01 Elevation of levels of liver transaminase levels; A54.9 Gonococcal infection, unspecified; E87.6 Hypokalemia; E83.42 Hypomagnesemia; G40.909 Epilepsy, unspecified, not intractable, without status epilepticus; K29.70 Gastritis, unspecified, without bleeding; Z88.8 Allergy status to other drugs, medicaments and biological substances; Z59.00 Homelessness unspecified; Z87.442 Personal history of urinary calculi; Z99.11 Dependence on respirator [ventilator] status; Z56.0 Unemployment, unspecified; Z91.51 Personal history of suicidal behavior
CPT/HCPCS: 36415; 36600; 71045; 71275; 80048; 80053; 80061; 80202; 80307; 81001; 82140; 82306; 82565; 82607; 82805; 82945; 82962; 83036; 83605; 83690; 83735; 84100; 84132; 84157; 84295; 84439; 84443; 84481; 84702; 85007; 85025; 85027; 85379; 85610; 85730; 86592; 86606; 86612; 86635; 86641; 86698; 86738; 86777; 86778; 86850; 86900; 86901; 86920; 87040; 87070; 87077; 87081; 87086; 87186; 87205; 87278; 87426; 87529; 87804; 87899; 88108; 89051; 92507; 92610; 93005; 93306; 93970; 94002; 94003; 94640; 97110; 97116; 97163; 97530; G0378; J0171; J1450; J1885; J2248; J2250; J2405; J2470; J2704; J3480; J3490; J7060